=== PATIENT | male | born 2000 | race Hispanic/Latino ===

== ENCOUNTER 2020-07-25 05:11 | Emergency (ER) | payer OTHER, SELFPAY ==
--- OUTSIDE RECORDS SUMMARY | 2020-07-25 05:14 | XMS REPORT | Continuity of Care Document ---
:[address] [facility] t Address [address] [place] [address] Care Team Providers Name Role Phone Unavailable Unavailable Unavailable Payers Payer Name Policy Type Policy Number Effective Date Expiration Date S ource Problems This patient has no known problems. Allergies, Adverse Reactions, Alerts Allergy Allergy Status Severity Reaction(s) Onset Inactive Treating Comm ents Source Name Type Date Date Clinician No Known DA Active [facility] 5[facility]10 [facility] Medications This patient has no known medications. Procedures This patient has no known procedures. Results Test Description Test Time Test Comments Results Result [facility] e Comments - XR SHOULDER 1 V 2019-07-06 FAX: Y RT 15:58:00 Vincenzo Lan MD [place]: [facility] St: REG Name: [facility] : 2000 Age/S: 19/M [address] Unit #: [id number] Loc: [place] [address] Phys: Vincenzo Lan MD Acct: [id number] Dis Date: Status: REG ER PHONE #: [phone] Exam Date: 07/06/2019 1544 FAX #: [phone] Reason: post reduction EXAMS: CPT CODE: [id number] XR SHOULDER 1 V RT [id number] Location code: H5 Right Shoulder 2 Views Indication: post reduction. Comparison: 07/06/2019. Findings: The acromioclavicular joint demonstrates mild hypertrophic spurring. Anteroinferior dislocation of the humerus The glenoid is intact. No evidence of fracture. Soft tissues are unremarkable. Impression: 1. Anteroinferior shoulder dislocation.. at 7881 Reported and signed by: MACIE PINA M.D. CC: Vincenzo Lan MD Technologist: Karin Scales RT (R) CT (R) Trnscrd Date/Time/By: 07/06/2019 (5614) : By: [email or web address] Orig Print D/T: S: 07/06/2019 (7181) PAGE 1 Signed Report - XR KNEE 3 V RT 2019-07-06 FAX: Y 14:23:00 Vincenzo Lan MD [place]: [facility] St: REG Name: [facility] : 2000 Age/S: 19/M [address] Unit #: [id number] Loc: [place] [address] Phys: Vincenzo Lan MD Acct: [id number] Dis Date: Status: REG ER PHONE #: [phone] Exam Date: 07/06/2019 1414 FAX #: [phone] Reason: fall EXAMS: CPT CODE: [id number] XR KNEE 3 V RT [id number] - XR KNEE 3 V RT PROVIDED REASON FOR EXAM: fall Comparison: None available. FINDINGS: Joint is anatomic alignment. Joint spaces are well-maintained. Prepatellar soft tissue swelling. Small joint effusion. IMPRESSION: Prepatellar soft tissue swelling and small joint effusion without acute osseous process Location: H13 at 1423 Reported and signed by: MURPHY GRIMES M.D. CC: Vincenzo Lan MD Technologist: Karin Scales RT (R) CT (R) Trnlard Date/Time/By: 07/06/2019 (142) : By: [email or web address] Orig Print D/T: S: 07/06/2019 (142) PAGE 1 Signed Report - XR SHOULDER 1 V 2019-07-06 FAX: Y RT 14:22:00 Vincenzo Lan MD [place]: [facility] St: REG Name: [facility] : 2000 Age/S: 19/M [address] Unit #: [id number] Loc: [place] [address] Phys: Vincenzo Lan MD Acct: [id number] Dis Date: Status: REG ER PHONE #: [phone] Exam Date: 07/06/2019 1416 FAX #: [phone] Reason: fall EXAMS: CPT CODE: [id number] XR SHOULDER 1 V RT [id number] - XR SHOULDER 1 V RT PROVIDED REASON FOR EXAM: fall Comparison: None available. FINDINGS: Inferior dislocation of the humeral head. No Hill-Sachs fracture identified. Glenoid appears unremarkable. Visualized right lung is clear process. IMPRESSION: Inferior dislocation of the humeral head Location: H13 at 1422 Reported and signed by: MURPHY GRIMES M.D. CC: Vincenzo Lan MD Technologist: Karin Scales RT (R) CT (R) Trnscrd Date/Time/By: 07/06/2019 (8760) : By: [email or web address] Orig Print D/T: S: 07/06/2019 (3396) PAGE 1 Signed Report
[2020-07-25 05:54] LABS: Absolute Lymphocytes (CBC) 3.6 K/uL (0.7-4.9); Basophils % 0.9 % (0-1.3); Hematocrit 44.8 % (39.6-49.0); Lymphocytes % 32.3 % (15.3-44.8); MPV 8.4 fL (7.6-11.3); RBC Red Blood Cell Count 5.21 M/uL (4.33-5.43)
[2020-07-25 06:10] LABS: Potassium 3.7 mmol/L (3.5-5.1)
[2020-07-25 06:55] LABS: Protime INR 0.99
[2020-07-25 07:09] LABS: ALT/SGPT 61 U/L (12-78); AST/SGOT 30 U/L (15-37); Alkaline Phosphatase 125 U/L (45-117); Bilirubin Direct < 0.1 mg/dL (0-0.2); Bilirubin Total 0.2 mg/dL (0.2-1.0); Protein, Total 7.3 g/dL (6.4-8.2)
--- NOTE | 2020-07-25 07:39 | EDPHYS ---
Physician Documentation [facility] Name: Mitch Ho Age: 20 yrs Sex: Male : 2000 Arrival Date: 07/25/2020 Time: 05:12 Bed 4 Private MD: ED Physician Jovani Prince HPI: 07/25 06:07 This 20 yrs old Male presents to ER via EMS with complaints of Fall Injury. [facility] 06:07 Details of fall: The patient fell from an upright position, while standing, and struck [facility] Bathtub. Onset: The symptoms/episode began/occurred today, at an unknown time. Associated injuries: The patient sustained left lower leg, painful injury. Severity of symptoms: At their worst the symptoms were moderate, earlier today, in the emergency department the symptoms are unchanged. 06:07 Admits to drinking ETOH and does know if he hit his head or had LOC.. [facility] Historical: - Allergies: 05:23 No Known Allergies; ea - Home Meds: 05:23 None [Active]; ea - PMHx: 05:23 None; ea - PSHx: 05:23 None; ea - Immunization history:: Adult Immunizations up to date. - Immunization history: Last tetanus immunization: unknown. - Social history:: Smoking status: unknown. ROS: 06:07 Constitutional: Negative for fever, chills, and weight loss, Eyes: Negative for injury, mh7 pain, redness, and discharge, ENT: Negative for injury, pain, and discharge, Neck: Negative for injury, pain, and swelling, Cardiovascular: Negative for chest pain, palpitations, and edema, Respiratory: Negative for shortness of breath, cough, wheezing, and pleuritic chest pain, Abdomen/GI: Negative for abdominal pain, nausea, vomiting, diarrhea, and constipation, Back: Negative for injury and pain, : Negative for injury, bleeding, discharge, and swelling, Skin: Negative for injury, rash, and discoloration, Neuro: Negative for headache, weakness, numbness, tingling, and seizure, Psych: Negative for depression, anxiety, suicide ideation, homicidal ideation, and hallucinations, Allergy/Immunology: Negative for hives, rash, and allergies, Endocrine: Negative for neck swelling, polydipsia, polyuria, polyphagia, and marked weight changes, Hematologic/Lymphatic: Negative for swollen nodes, abnormal bleeding, and unusual bruising. Exam: 06:07 Head/Face: Normocephalic, atraumatic. Eyes: Pupils equal round and reactive to light, mh7 extra-ocular motions intact. Lids and lashes normal. Conjunctiva and sclera are non-icteric and not injected. Cornea within normal limits. Periorbital areas with no swelling, redness, or edema. ENT: Nares patent. No nasal discharge, no septal abnormalities noted. Tympanic membranes are normal and external auditory canals are clear. Oropharynx with no redness, swelling, or masses, exudates, or evidence of obstruction, uvula midline. Mucous membranes moist. Neck: Trachea midline, no thyromegaly or masses palpated, and no cervical lymphadenopathy. Supple, full range of motion without nuchal rigidity, or vertebral point tenderness. No Meningismus. Chest/axilla: Normal chest wall appearance and motion. Nontender with no deformity. No lesions are appreciated. Cardiovascular: Regular rate and rhythm with a normal S1 and S2. No gallops, murmurs, or rubs. Normal PMI, no JVD. No pulse deficits. Respiratory: Lungs have equal breath sounds bilaterally, clear to auscultation and percussion. No rales, rhonchi or wheezes noted. No increased work of breathing, no retractions or nasal flaring. Abdomen/GI: Soft, non-tender, with normal bowel sounds. No distension or tympany. No guarding or rebound. No evidence of tenderness throughout. Back: No spinal tenderness. No costovertebral tenderness. Full range of motion. Skin: Warm, dry with normal turgor. Normal color with no rashes, no lesions, and no evidence of cellulitis. 06:07 Neuro: Awake and alert, GCS 15, oriented to person, place, time, and situation. Cranial nerves II-XII grossly intact. Motor strength 5/5 in all extremities. Sensory grossly intact. Cerebellar exam normal. Normal gait. Psych: Awake, alert, with orientation to person, place and time. Behavior, mood, and affect are within normal limits. 06:07 Constitutional: The patient appears in no acute distress, alert, awake, Appears intoxicated 06:07 Musculoskeletal/extremity: Extremities: noted in the left lower leg: decreased ROM, pain, swelling, tenderness, ROM: limited active range of motion due to pain, in the left leg, limited passive range of motion due to pain, in the left leg, Circulation is intact in all extremities. Sensation intact. Compartment Syndrome exam of affected extremity: is normal. no numbness, no tingling, no sensation deficit, no palor, no weak pulses, Joints: All joints appear normal with full range of motion. Tendon exam: specific tendon testing normal through active and passive range of motion 08:43 ECG was reviewed by the Attending Physician. [facility] Vital Signs: 05:14 BP 126 / 77; Pulse 106; Resp 20; Temp 98.2(O); Pulse Ox 99% on R/A; Weight 96.62 kg lp1 (R); Height 5 ft. 9 in. (175.26 cm); Pain 10/10; 06:46 BP 115 / 89; Pulse 107; Resp 18; Pulse Ox 98% ; ea 07:19 BP 126 / 77; Pulse 103; Resp 17 S; Pulse Ox 97% on R/A; jd3 08:45 BP 107 / 81; Pulse 61; Resp 16 S; Pulse Ox 98% on R/A; jd3 05:14 Body Mass Index 31.45 (96.62 kg, 175.26 cm) lp1 Mady Coma Score: 05:14 Eye Response: spontaneous(4). Verbal Response: oriented(5). Motor Response: obeys ea commands(6). Total: 15. 09:30 Eye Response: spontaneous(4). Verbal Response: oriented(5). Motor Response: obeys jd3 commands(6). Total: 15. Trauma Score (Adult): 05:14 Eye Response: spontaneous(1); Verbal Response: oriented(1); Motor Response: obeys ea commands(2); Systolic BP: > 89 mm Hg(4); Respiratory Rate: 10 to 29 per min(4); Whitman Score: 15; Trauma Score: 12 09:30 Eye Response: spontaneous(1); Verbal Response: oriented(1); Motor Response: obeys jd3 commands(2); Systolic BP: > 89 mm Hg(4); Respiratory Rate: 10 to 29 per min(4); Mady Score: 15; Trauma Score: 12 MDM: 06:26 Patient medically screened. [facility] 07:41 Differential diagnosis: fracture, sprain, strain. Data reviewed: vital signs, nurses [facility] notes, lab test result(s), EKG, radiologic studies, CT scan, plain films. Data interpreted: personnel monitor: rate is 103 beats/min, rhythm is regular, Pulse oximetry: on room air is 97 %. Test interpretation: by ED physician or midlevel provider: ECG, plain radiologic studies. Counseling: I had a detailed discussion with the patient and/or guardian regarding: the historical points, exam findings, and any diagnostic results supporting the discharge/admit diagnosis, lab results, radiology results, the need to transfer to another facility, for higher level of care, [facility] does not immediately have the required specialist. 07/25 05:32 Order name: Basic Metabolic Panel; Complete Time: 07:30 07/25 05:32 Order name: CBC with Diff; Complete Time: 07:30 07/25 05:32 Order name: Type And Screen; Complete Time: 08:42 07/25 06:13 Order name: LFT's; Complete Time: 07:30 [facility] 07/25 06:13 Order name: Protime (+inr); Complete Time: 07:30 [facility] 07/25 06:13 Order name: Ptt, Activated; Complete Time: 07:30 [facility] 07/25 07:33 Order name: Acetaminophen [facility] 07/25 07:33 Order name: ETOH Level; Complete Time: 08:42 [facility] 07/25 07:33 Order name: Salicylate [facility] 07/25 07:33 Order name: Urine Drug Screen [facility] 07/25 07:35 Order name: COVID-19 : Document "Date of Symptom Onset" if Symptomatic. [facility] 07/25 07:43 Order name: ABO/RH no charge; Complete Time: 08:42 [facility] 07/25 09:17 Order name: Urine Dipstick-Ancillary [facility] 07/25 05:15 Order name: XRAY Tib Fib LEFT 07/25 05:32 Order name: CT Traumagram (Head C Spine CAP wo con) 07/25 05:32 Order name: Labs collected and sent; Complete Time: 05:53 07/25 06:48 Order name: Labs - recollect needed: recollect T\\T\\S/ tube short please do not use eb sharpie or gel pen; Complete Time: 07:18 07/25 07:33 Order name: EKG; Complete Time: 07:34 [facility] 07/25 07:33 Order name: EKG - Nurse/Tech; Complete Time: 08:42 [facility] 07/25 07:33 Order name: IV Saline Lock; Complete Time: 07:46 [facility] 07/25 07:33 Order name: Suicide Screening ([place]); Complete Time: 07:46 [facility] 07/25 07:33 Order name: Urine Dipstick-Ancillary (obtain specimen); Complete Time: 09:19 [facility] 07/25 07:33 Order name: Splint - Long Leg: Posterior w/ Stirrup; Complete Time: 08:08 [facility] EC:43 Rate is 112 beats/min. Rhythm is regular. QRS [place] is Normal. CA interval is normal. [facility] QRS interval is normal. QT interval is normal. No Q waves. T waves are Normal. No ST changes noted. Clinical impression: Sinus tachycardia and No evidence of ischemia. Interpreted by me. Reviewed by me. Administered Medications: 08:22 Drug: NS 0.9% 1000 ml Route: IV; Rate: 1 bolus; Site: left antecubital; jd3 09:26 Follow up: IV Status: Completed infusion; IV Intake: 1000ml bp Disposition: 07/25/20 07:39 Transfer ordered to [facility]. Diagnosis are Alcohol abuse with intoxication, Alcohol abuse, Displaced spiral fracture of shaft of left tibia, Displaced spiral fracture of shaft of left fibula, Fall due to bumping against object, Pain in right shoulder - old hill-sacks, Other fracture of first lumbar vertebra - L1 transverse process. - Reason for transfer: Higher level of care. - Accepting physician is to [facility], Dr Pepito Casey. - Condition is Stable. - Problem is new. - Symptoms have improved. Signatures: Dispatcher [employer] EDJovani Silver MD MD cha Antunez, Elena RN Jefferson Johns ea, RN RN jLeah Bro Maurice, MD MD Oziel Issa RN bp Corrections: (The following items were deleted from the chart) 09:14 07:39 07/25/2020 07:39 Transfer ordered to [facility]. Diagnosis is [facility] Alcohol abuse with intoxication; Alcohol abuse; Displaced spiral fracture of shaft of left tibia; Displaced spiral fracture of shaft of left fibula; Fall due to bumping against object. Reason for transfer: Higher level of care. Accepting physician is to [facility]. Condition is Stable. Problem is new. Symptoms have improved. [facility] 09:15 09:14 07/25/2020 07:39 Transfer ordered to [facility]. Diagnosis is [place] Alcohol abuse with intoxication; Alcohol abuse; Displaced spiral fracture of shaft of left tibia; Displaced spiral fracture of shaft of left fibula; Fall due to bumping against object; Pain in right shoulder - old hill-sacks; Other fracture of first lumbar vertebra - L1 transverse process. Reason for transfer: Higher level of care. Accepting physician is to [facility]. Condition is Stable. Problem is new. Symptoms have improved. [facility] 09:47 09:15 07/25/2020 07:39 Transfer ordered to [facility]. Diagnosis is jd3 Alcohol abuse with intoxication; Alcohol abuse; Displaced spiral fracture of shaft of left tibia; Displaced spiral fracture of shaft of left fibula; Fall due to bumping against object; Pain in right shoulder - old hill-sacks; Other fracture of first lumbar vertebra - L1 transverse process. Reason for transfer: Higher level of care. Accepting physician is to [facility], Dr Pepito Casey. Condition is Stable. Problem is new. Symptoms have improved. [facility]
--- NOTE | 2020-07-25 07:39 | ER ---
Nurse's Notes [facility] Name: Mitch Ho Age: 20 yrs Sex: Male : 2000 Arrival Date: 07/25/2020 Time: 05:12 Bed 4 Private MD: Diagnosis: Alcohol abuse with intoxication;Alcohol abuse;Displaced spiral fracture of shaft of left tibia;Displaced spiral fracture of shaft of left fibula;Fall due to bumping against object;Pain in right shoulder-old hill-sacks;Other fracture of first lumbar vertebra-L1 transverse process Presentation: 07/25 05:14 Coronavirus screen: Client denies travel out of the [place] in the last 14 days. At this lp1 time, the client does not indicate any symptoms associated with coronavirus-19. Ebola Screen: No symptoms or risks identified at this time. Initial Sepsis Screen: Does the patient meet any 2 criteria? No. Patient's initial sepsis screen is negative. Does the patient have a suspected source of infection? No. Patient's initial sepsis screen is negative. Risk Assessment: Do you want to hurt yourself or someone else? Patient reports no desire to harm self or others. 05:14 Acuity: SALAS 2 lp1 05:14 Method Of Arrival: EMS: [facility] lp1 05:14 Chief complaint: EMS states: Reported pt fell in the shower, EMS noted bony deformity ea on the left leg. Care prior to arrival: left lower leg splint. Mechanism of Injury: Fall from standing position. Trauma event details: Injury occurred in the [facility], Injury occurred: at home. Injury occurred: July 25, 2020. 05:14 Onset of symptoms was July 25, 2020. ea Trauma Activation: Alert Physician: ED Physician; Name: ; Notified At: ; Arrived At: Physician: General Surgeon; Name: ; Notified At: ; Arrived At: Physician: Radiology; Name: ; Notified At: ; Arrived At: Physician: Respiratory; Name: ; Notified At: ; Arrived At: Physician: Lab; Name: ; Notified At: ; Arrived At: Historical: - Allergies: 05:23 No Known Allergies; ea - Home Meds: 05:23 None [Active]; ea - PMHx: 05:23 None; ea - PSHx: 05:23 None; ea - Immunization history:: Adult Immunizations up to date. - Immunization history: Last tetanus immunization: unknown. - Social history:: Smoking status: unknown. Screenin:14 Abuse screen: Denies threats or abuse. Nutritional screening: No deficits noted. ea Tuberculosis screening: No symptoms or risk factors identified. Fall Risk None identified. Primary Survey: 05:14 NO uncontrolled hemorrhage observed. Breathing/Chest: Respiratory pattern: regular, ea Respiratory effort: spontaneous, unlabored. Circulation: Pulses: palpable left dorsalis pedis artery. Skin color: pink, Skin temperature: warm. Disability Alert. Exposure/Environment: Obvious injury(ies) are noted at this time: swelling and body deformity to left lower extremity. 06:48 Reassessment Breathing/Chest Respiratory pattern Regular Respiratory effort Spontaneous ea Unlabored Disability Alert. Assessment: 05:14 General: Appears uncomfortable, Behavior is appropriate for age, Smells of alcohol. ea Pain: Complains of pain in left leg. Neuro: Level of Consciousness is awake, alert, obeys commands, Oriented to person, place, time. Respiratory: Airway is patent Respiratory effort is even, unlabored, Respiratory pattern is regular, symmetrical. Derm: Skin is pink, warm \T\ dry. Musculoskeletal: Bony deformity noted of left coats. 06:16 Reassessment: Patient and/or family updated on plan of care and expected duration. Pain ea level reassessed. Patient is alert, oriented x 3, equal unlabored respirations, skin warm/dry/pink. 07:20 General: Appears comfortable, Behavior is cooperative, appropriate for age, Smells of jd3 alcohol. Pain: Complains of pain in left leg. Neuro: Level of Consciousness is awake, alert, obeys commands, Oriented to person, place, time. Cardiovascular: Capillary refill < 3 seconds Patient's skin is warm and dry. Respiratory: Airway is patent Respiratory effort is even, unlabored, Respiratory pattern is regular, symmetrical. Derm: Skin is intact, Skin is dry, Skin is normal, Skin temperature is warm. Musculoskeletal: Bony deformity noted of left leg. 08:44 Reassessment: Patient and/or family updated on plan of care and expected duration. Pain jd3 level reassessed. Patient is alert, oriented x 3, equal unlabored respirations, skin warm/dry/pink. report given to [place] at [facility] Patient denies pain at this time. 09:25 Reassessment: [facility] AT B/S FOR TRANSPORT. bp 09:45 Reassessment: Patient appears in no apparent distress at this time. Patient and/or jd3 family updated on plan of care and expected duration. Pain level reassessed. Patient is alert, oriented x 3, equal unlabored respirations, skin warm/dry/pink. Vital Signs: 05:14 BP 126 / 77; Pulse 106; Resp 20; Temp 98.2(O); Pulse Ox 99% on R/A; Weight 96.62 kg lp1 (R); Height 5 ft. 9 in. (175.26 cm); Pain 10/10; 06:46 BP 115 / 89; Pulse 107; Resp 18; Pulse Ox 98% ; ea 07:19 BP 126 / 77; Pulse 103; Resp 17 S; Pulse Ox 97% on R/A; jd3 08:45 BP 107 / 81; Pulse 61; Resp 16 S; Pulse Ox 98% on R/A; jd3 05:14 Body Mass Index 31.45 (96.62 kg, 175.26 cm) lp1 [place] Coma Score: 05:14 Eye Response: spontaneous(4). Verbal Response: oriented(5). Motor Response: obeys ea commands(6). Total: 15. 09:30 Eye Response: spontaneous(4). Verbal Response: oriented(5). Motor Response: obeys jd3 commands(6). Total: 15. Trauma Score (Adult): 05:14 Eye Response: spontaneous(1); Verbal Response: oriented(1); Motor Response: obeys ea commands(2); Systolic BP: > 89 mm Hg(4); Respiratory Rate: 10 to 29 per min(4); Mady Score: 15; Trauma Score: 12 09:30 Eye Response: spontaneous(1); Verbal Response: oriented(1); Motor Response: obeys jd3 commands(2); Systolic BP: > 89 mm Hg(4); Respiratory Rate: 10 to 29 per min(4); [place] Score: 15; Trauma Score: 12 ED Course: 05:12 Patient arrived in ED. iw 05:14 Brianna Mckinney, RN is Primary Nurse. ea 05:14 Patient has correct armband on for positive identification. Bed in low position. Call ea light in reach. Side rails up X2. 05:14 Patient placed in an exam room, on a stretcher, on pulse oximetry. ea 05:14 Patient maintains SpO2 saturation greater than 95% on room air. ea 05:15 Triage completed. lp1 05:18 Colt Sibley MD is Attending Physician. 7 05:27 Thermoregulation: warm blanket given to patient. ea 05:28 Inserted saline lock: 20 gauge in left forearm, using aseptic technique. Blood ea collected. 05:40 XRAY Tib Fib LEFT In Process Unspecified. EDMS 06:17 CT Traumagram (Head C Spine CAP wo con) In Process Unspecified. EDMS 06:26 Attending Physician role handed off by Colt Sibley MD philly 06:26 Jovani Prince MD is Attending Physician. philly 07:[address] Prince with Constanza Fontana Rn from the [facility]. 07:39 administrative approval given by Constanza Fontana Rn to Dr. Prince/ patient has been eb accepted to [facility] ER/ Dr. Casey has accepted the patient in transfer without conference. report to be called to [phone]. 07:59 Orthoglass splint: Posterior long leg splint applied on left leg. stirrup splint dh3 applied on left leg. capillary refill <3 seconds, viewed by Dr. Prince. 08:18 Primary Nurse role handed off by Brianna Mckinney, SARITA 08:42 Jefferson Lopez, SARITA is Primary Nurse. jd3 09:26 No provider procedures requiring assistance completed. Patient transferred, IV remains bp in place. Administered Medications: 08:22 Drug: NS 0.9% 1000 ml Route: IV; Rate: 1 bolus; Site: left antecubital; jd3 09:26 Follow up: IV Status: Completed infusion; IV Intake: 1000ml bp Intake: 09:26 IV: 1000ml; Total: 1000ml. bp 09:30 IV: 1500ml (IV Fluid); Total: 2500ml. jd3 Output: 09:30 Urine: 1500ml (Voided); Total: 1500ml. jd3 Outcome: 07:39 ER care complete, transfer ordered by . philly 09:45 Transferred by ground EMS to [facility], Transfer form completed. X-rays sent jd3 w/ patient. 09:45 Condition: stable 09:45 Instructed on the need for transfer, Demonstrated understanding of instructions. 09:46 Patient's length of stay in the Emergency Department was greater than 2 hours. transfer jd3 processPatient's length of stay extended due to 09:47 Patient left the ED. feliberto Signatures: Dispatcher [employer] EDMS Jovani Prince MD MD cha Williams, Irene, Estella Coughlin RN, RN RN [facility] Mary Dunn [facility] Brianna Mckinney RN RN ea Davies, Jonathon, RN RN jd3 Oziel Liz RN RN bp Botello, Elizabeth eb Holmes, Maurice, MD MD 7
[2020-07-25] MEDS ORDERED: NA CHLORIDE 0.9% 1,000 ML ONE (08:30)
--- NOTE | 2020-07-25 09:13 | RAD REPORT ---
EXAM DESCRIPTION: RAD - Tib Fib Left - 07/25/2020 5:42 am CLINICAL HISTORY: Leg trauma, visible deformity, leg pain COMPARISON: None. FINDINGS: Cross-table views of the left tib-fib obtained the could not be optimally positioned. Spiral type fracture of the distal tibia present near the diaphyseal metaphyseal junction. Approximat agnes 15 degrees medial angulation deformity. There is approximately 10 mm of posterior and 6 mm of med ial displacement of the distal fracture fragment. There are probably small free fracture fragments al logan the main spiral fracture plane. Comminuted fracture of the distal fibula shaft is present with similar angulation and posterior displ acement. No pathologic change. Knee and ankle joints show no suspicious findings. No foreign body or other soft tissue abnormality. IMPRESSION: Distal left tib-fib fracture as detailed.
[2020-07-25 09:19] LABS: Urine Blood Negative (Negative); Urine Glucose Negative (Negative); Urine Protein Negative (Negative)
[2020-07-25 09:50] LABS: Barbiturates NEGATIVE (NEGATIVE); Benzodiazepines NEGATIVE (NEGATIVE); Cocaine NEGATIVE (NEGATIVE); METHAMPHETAM NEGATIVE (NEGATIVE); Methadone NEGATIVE (NEGATIVE); Opiates NEGATIVE (NEGATIVE); Phencyclidine NEGATIVE (NEGATIVE); THC Cannibis NEGATIVE (NEGATIVE)
[2020-07-25 09:54] VITALS: TEMP 98.2
[2020-07-25 09:58] VITALS: BP 107/81; O2SAT 98
--- NOTE | 2020-07-26 09:44 | RAD REPORT ---
EXAM DESCRIPTION: CT - Head C Spine Cap Wo Con - 07/25/2020 6:17 am COMPARISON: None. CLINICAL HISTORY: [facility] MAIN PAIN TECHNIQUE: Axial images were obtained from skull base to vertex without intravenous contrast. Imag es viewed on bone and brain windows. Multiplanar reformats were performed. Automated exposure contr ol was utilized on this examination as a dose lowering technique. FINDINGS: Brain parenchyma, ventricles, dura, meninges, and extra-axial spaces: Ventricles and sulci are normal. No abnormal attenuation of brain parenchyma is present. No acute intracranial hemor rhage or abnormal extra-axial fluid collections are present. Vascular structures: No hyperdense arteries or veins. Calvarium, mastoid air cells, paranasal sinuses and orbits: The calvarium is normal. The mastoid air cells are clear. Visualized paranasal sinuses are unremarkable. Orbital structures are unremarkable. IMPRESSION: No acute intracranial abnormality. EXAM DESCRIPTION: CT Cervical Spine COMPARISON: None. CLINICAL HISTORY: [facility] MAIN PAIN TECHNIQUE: Axial CT images were obtained through the entire cervical spine without contrast. Sagit natali and coronal reconstructions are provided. Automated exposure control was utilized on this examina tion as a dose lowering technique. FINDINGS: Vertebrae: Vertebral statures and alignment are normal. No acute fracture, dislocation o r destructive osseous process is present. Spinal canal, foramina, and facet joints: No significant spinal canal or foraminal stenoses. No significant facet arthropathy. Paraspinous soft-tissues: Normal. Thyroid: Normal. Other Findings: None. IMPRESSION: Normal CT of the cervical spine. EXAM DESCRIPTION: CT Chest, Abdomen, and Pelvis COMPARISON: None. CLINICAL HISTORY: [facility] MAIN PAIN TECHNIQUE: CT images through the chest, abdomen, and pelvis following IV contrast. Multiplanar refor mats. Automated exposure control was utilized on this examination as a dose lowering technique. CT CHEST FINDINGS: Heart and mediastinum: Heart size is normal. No lymphadenopathy. Thyroid gland: Visualized portions are normal. Lungs: Clear. Airways: No filling defects. No bronchiectasis. Pleura: No pneumothorax. No significant pleural effusion. Musculoskeletal and soft tissues: There is a minimally displaced fracture of the anterior right gleno id. There is an impaction fracture of the posterior lateral right humerus. CHEST IMPRESSION: Right Hill-Sachs fracture of the humerus with osseous Bankart fracture of the ante rior right glenoid. No acute chest process otherwise. CT ABDOMEN & PELVIS FINDINGS: Liver: Normal. Gallbladder and biliary: Normal gallbladder. Unremarkable biliary tree. Pancreas: Normal. Spleen: Normal. Kidneys and adrenal glands: Normal adrenal glands. Normal kidneys Stomach and Small Bowel: The stomach and small bowel are normal. Urinary bladder: Normal. Prostate/Male Urogenital: Normal. Colon and Appendix: The colon is unremarkable. No evidence of appendicitis. Peritoneal cavity: No ascites or free air. Retroperitoneum and lymph nodes: Normal. Vascular: Normal. Musculoskeletal and soft tissues: Soft tissues are unremarkable. No aggressive bone lesions. No com pression fracture. Mildly displaced fracture of the left L1 transverse process. ABDOMEN AND PELVIS IMPRESSION: Mildly displaced fracture of the left L1 transverse process. No acute intra-abdominal abnormality. Electronically signed by: Sagar Coronado MD 07/25/2020 6:54 AM CDT Due to temporary technical issues with the PACS/Fluency reporting system, reports are being signed by the in house radiologists without review as a courtesy to insure prompt reporting. The interpreting radiologist is fully responsible for the content of the report.
--- NOTE | 2020-07-28 12:07 | EKG ---
Test Date: 2020-07-25 Test Time: 08:16:38 Plate Grainer Apprentice: HENNA MEASUREMENT RESULTS: Intervals: Rate: 112 AK: 156 QRSD: 88 QT: 326 QTc: 444 Greenleaf: P: 56 AK: 156 QRS: 14 T: 30 INTERPRETIVE STATEMENTS: Sinus tachycardia Otherwise normal ECG No previous ECG available for comparison Electronically Signed On 07-28-20 11:55:20 CDT by Kraig Pizarro
== END 2020-07-25 09:47 | disposition short-term general hospital (02) ==
LOC: ER 05:11
PROC: 2W3MX1Z Immobilization of Left Lower Extremity using Splint (ICD-10-PCS; principal; 2020-07-25)
DX: S82.242A Displaced spiral fracture of shaft of left tibia, initial encounter for closed fracture (principal); S82.442A Displaced spiral fracture of shaft of left fibula, initial encounter for closed fracture; S32.019A Unspecified fracture of first lumbar vertebra, initial encounter for closed fracture; F10.129 Alcohol abuse with intoxication, unspecified; M25.511 Pain in right shoulder; W18.30XA Fall on same level, unspecified, initial encounter; Z20.822 Contact with and (suspected) exposure to COVID-19
CPT/HCPCS: 36415; 70450; 71250; 72125; 80048; 80076; 80307; 80320; 80329; 81003; 85025; 85610; 85730; 86850; 86900; 86901; 93005; 96360; 99285; G0390; J7030; U0003

== ENCOUNTER 2021-06-06 01:26 | Emergency (ER) | payer SELFPAY ==
--- OUTSIDE RECORDS SUMMARY | 2021-06-06 01:29 | XMS REPORT | Continuity of Care Document ---
:2000 Author Organization [facility] t Address [address] [place] [address] Care Team Providers Name Role Phone Unknown, Physician Primary Care Physician Unavailable KAILEY GARCIA Attending Clinician Unavailable KRISS STEPHENS JR Attending Clinician Unavailable MILTON GOMEZ Attending Clinician Unavailable Aubrie Scales MA Attending Clinician Unavailable CARLOS PARRISH Attending Clinician Unavailable KOFI REEDER Admitting Clinician Unavailable Payers Payer Name Policy Type Policy Number Effective Date Expiration Date S ource Problems Condition Condition Condition Status Onset Resolution Last Treating Co mments Source Name Details Category Date Date Treatment Clinician Date No known No known Disease [place] active active Health problems problems Allergies, Adverse Reactions, Alerts Allergy Allergy Status Severity Reaction(s) Onset Inactive Treating Comm ents Source Name Type Date Date Clinician No Known DA Active U 2019-0 [facility] No Known DA Active U 2020-0 [facility] Allergie 5[facility]10 [facility] Social History Social Habit Start Date Stop Date Quantity Comments Source Exposure to SARS-CoV-2 Not sure [facility] (event) Sex Assigned At [birth year] [facility] 00:00:00 00:00:00 Smoking Status Start Date Stop Date Source Tobacco smoking consumption unknown [facility] Medications Ordered Filled Start Stop Current Ordering Indication Dosage Frequency Signature Comments Components Source Medication Medication Date Date Medication? Clinician (SIG) Name Name No known No No known [facility] 8- medication [facility] alth 11:21: s 37 No known No No known [facility] 8-25 medication [facility] 11:21: s 37 No known No [facility] medications Health Procedures This patient has no known procedures. Encounters Start End Encounter Admission Attending Care Care Encounter Source Date/Time Date/Time Type Type Clinicians Facility Department ID 2021-02-11 Outpatient [facility] [id number] [place] 08:10:56 Health 2020-12-15 Outpatient MARY [facility] [id number] [place] 12:32:47 [facility] 2020-12-10 Outpatient [facility] [id number] [place] 12:50:38 Health 2020-10-15 Outpatient [facility] [id number] [place] 09:59:19 [facility] 2020-09-03 Outpatient [facility] [id number] [place] 11:49:31 [facility] 2020-08-28 Outpatient KAT MARSH [facility] [id number] [place] 01:05:12 [facility] 2020-08-06 Outpatient [facility] [id number] [place] 15:33:14 [facility] 2019-07-06 Inpatient [facility] [id number] 13:42:00 [id number] [facility] 2020-12-15 2020-12-15 Office ZULEYMA GOMEZ [id number] [place] 10:23:12 10:38:12 Visit REEJU TRAUMA [id number] [facility] [id number] 2020-12-15 2020-12-15 Orders Aubrie Scales [id number] [place] 00:00:00 00:00:00 Only Aubrie Scales TRAUMA [id number] [facility] CLINIC [id number] 2020-10-20 2020-10-20 Office ZULEYMA Garcia [id number] [place] 11:03:38 11:32:33 Visit Kailey TRAUMA [id number] [facility] CLINIC [id number] 2020-09-08 2020-09-08 Office ZULEYMA Garcia [id number] [place] 10:58:35 13:31:57 Visit Kailey TRAUMA [id number] [facility] [id number] 1 2020-08-11 2020-08-11 Office ZULEYMA Garcia [id number] [place] 11:29:56 13:12:56 Visit Kailey TRAUMA [id number] [facility] [id number] 2020-07-25 2020-07-30 Inpatient E SHIVANI, [facility] MED [address] [facility] 15:25:00 16:00:00 CARLOS Results Test Description Test Time Test Comments Results Result [facility] e Comments - XR SHOULDER 1 V 2019-07-06 FAX: Y RT 15:58:00 Vincenzo Lan MD [place]: [facility]: REG Name: KANNAN [facility] : 2000 Age/S: 19/M [address] Unit #: [id number] Loc: [place] [address] Phys: Vincenzo Lan MD Acct: [id number] Dis Date: Status: REG ER PHONE #: [phone] Exam Date: 07/06/2019 1548 FAX #: [phone] Reason: post reduction EXAMS: CPT CODE: [id number] XR SHOULDER 1 [place] [address] Location code: H5 Right Shoulder 2 Views Indication: post reduction. Comparison: 07/06/2019. Findings: The acromioclavicular joint demonstrates mild hypertrophic spurring. Anteroinferior dislocation of the humerus The glenoid is intact. No evidence of fracture. Soft tissues are unremarkable. Impression: 1. Anteroinferior shoulder dislocation.. at 1555 Reported and signed by: MACIE PINA M.D. CC: Vincenzo Lan MD Technologist: Karin Scales RT (R) CT (R) Trnscrd Date/Time/By: 07/06/2019 (9945) : By: [email or web address] Orig Print D/T: S: 07/06/2019 (3855) PAGE 1 Signed Report - XR KNEE 3 V RT 2019-07-06 FAX: Y 14:23:00 Vincenzo Lan MD [place]: [facility]: REG Name: KANNAN [facility] : 2000 Age/S: 19/M [address] Unit #: [id number] Loc: [place] [address] Phys: Vincenzo Lan MD Acct: [id number] Dis Date: Status: REG ER PHONE #: [phone] Exam Date: 07/06/2019 1414 FAX #: [phone] Reason: fall EXAMS: CPT CODE: [id number] XR KNEE 3 V RT 40805 - XR KNEE 3 V RT PROVIDED REASON FOR EXAM: fall Comparison: None available. FINDINGS: Joint is anatomic alignment. Joint spaces are well-maintained. Prepatellar soft tissue swelling. Small joint effusion. IMPRESSION: Prepatellar soft tissue swelling and small joint effusion without acute osseous process Location: H13 at 9068 Reported and signed by: MURPHY GRIMES M.D. CC: Vincenzo Lan MD Technologist: Karin Scales RT (R) CT (R) Trnscrd Date/Time/By: 07/06/2019 (1423) : By: [email or web address] Orig Print D/T: S: 07/06/2019 (219) PAGE 1 Signed Report - XR SHOULDER 1 V 2019-07-06 FAX: Y RT 14:22:00 Vincenzo Lan MD [place]: [facility]: REG Name: KANNAN [facility] : 2000 Age/S: 19/M [address] Unit #: [id number] Loc: [place] [address] Phys: Vincenzo Lan MD Acct: [id number] Dis Date: Status: REG ER PHONE #: [phone] Exam Date: 07/06/2019 1416 FAX #: [phone] Reason: fall EXAMS: CPT CODE: [id number] XR SHOULDER 1 V RT [id number] - XR SHOULDER 1 V RT PROVIDED [...] RT (R) CT (R) Trnscrd Date/Time/By: 07/06/2019 (142) : By: [email or web address] Orig Print D/T: S: 07/06/2019 (142) PAGE 1 Signed Report
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
[2021-06-06 07:09] VITALS: O2SAT 97
[2021-06-06 07:10] VITALS: BP 113/67; TEMP 98.1
--- NOTE | 2021-06-06 16:05 | RAD REPORT ---
EXAM DESCRIPTION: CT - Head Brain Wo Cont - 06/06/2021 6:40 am CLINICAL HISTORY: Trauma COMPARISON: None Available. TECHNIQUE: Multiple helical axial tomographic images were obtained of the head, facial bones, and ce rvical spine without intravenous contrast. This exam was performed according to our departmental dose -optimization program, which includes automated exposure control, adjustment of the mA and/or kV acco rding to patient size and/or use of iterative reconstruction technique. FINDINGS: There is no acute intracranial hemorrhage. No mass. No midline shift. No ventriculomegaly. Yanes-white matter differentiation is maintained. There is an acute, displaced fracture of the left orbital floor with small amount of orbital fat felisha iating through the defect. There is a rounded appearance of the left inferior rectus muscle which is in close proximity to the fracture. There is scattered air in the left orbit. There is hemorrhage in the left maxillary sinus and left ethmoid sinus. There are acute, mildly comminuted, mildly displaced fractures of the bilateral nasal bones. There is an acute, mildly displaced fracture of the anterior nasal septum. There is soft tissue swelling and soft tissue air overlying the nasal bones. Mastoid air cells and middle ear spaces are clear. No acute calvarial fracture. No evidence of an acute fracture of the cervical spine. Vertebral body heights and disc spaces appear maintained. No subluxation. Central canal is grossly patent. Left frontal scalp hematoma is present. IMPRESSION: 1. Acute, displaced fracture of the left orbital floor with small amount of orbital fat herniating through the defect. Altered contour of the left inferior rectus muscle which is in close p roximity to the fracture, correlate clinically for entrapment. 2. Acute, mildly comminuted, mildly displaced fractures of the bilateral nasal bones and anterior lizbeth al septum. 3. No acute intracranial process. 4. No evidence of an acute fracture of the cervical spine. Electronically signed by: Nuno Aquino MD 06/06/2021 3:31 AM CDT Due to temporary technical issues with the PACS/Fluency reporting system, reports are being signed by the in house radiologist without review as a courtesy to ensure prompt reporting. The interpreting r adiologist is fully responsible for the content of the report.
--- NOTE | 2021-06-06 16:06 | RAD REPORT ---
EXAM DESCRIPTION: CT - Facial Bones W/ Mpr - 06/06/2021 6:41 am CLINICAL HISTORY: Trauma COMPARISON: None Available. TECHNIQUE: Multiple helical axial tomographic images were obtained of the head, facial bones, and ce rvical spine without intravenous contrast. This exam was performed according to our departmental dose -optimization program, which includes automated exposure control, adjustment of the mA and/or kV acco rding to patient size and/or use of iterative reconstruction technique. FINDINGS: There is no acute intracranial hemorrhage. No mass. No midline shift. No ventriculomegaly. Yanes-white matter differentiation is maintained. There is an acute, displaced fracture of the left orbital floor with small amount of orbital fat felisha iating through the defect. There is a rounded appearance of the left inferior rectus muscle which is in close proximity to the fracture. There is scattered air in the left orbit. There is hemorrhage in the left maxillary sinus and left ethmoid sinus. There are acute, mildly comminuted, mildly displaced fractures of the bilateral nasal bones. There is an acute, mildly displaced fracture of the anterior nasal septum. There is soft tissue swelling and soft tissue air overlying the nasal bones. Mastoid air cells and middle ear spaces are clear. No acute calvarial fracture. No evidence of an acute fracture of the cervical spine. Vertebral body heights and disc spaces appear maintained. No subluxation. Central canal is grossly patent. Left frontal scalp hematoma is present. IMPRESSION: 1. Acute, displaced fracture of the left orbital floor with small amount of orbital fat herniating through the defect. Altered contour of the left inferior rectus muscle which is in close p roximity to the fracture, correlate clinically for entrapment. 2. Acute, mildly comminuted, mildly displaced fractures of the bilateral nasal bones and anterior lizbeth al septum. 3. No acute intracranial process. 4. No evidence of an acute fracture of the cervical spine. Electronically signed by: Nuno Aquino MD 06/06/2021 3:31 AM CDT Due to temporary technical issues with the PACS/Fluency reporting system, reports are being signed by the in house radiologist without review as a courtesy to ensure prompt reporting. The interpreting r adiologist is fully responsible for the content of the report.
--- NOTE | 2021-06-06 16:17 | RAD REPORT ---
EXAM DESCRIPTION: CT - C Spine Wo Con - 06/06/2021 6:40 am CLINICAL HISTORY: Trauma COMPARISON: None Available. TECHNIQUE: Multiple helical axial tomographic images were obtained of the head, facial bones, and ce rvical spine without intravenous contrast. This exam was performed according to our departmental dose -optimization program, which includes automated exposure control, adjustment of the mA and/or kV acco rding to patient size and/or use of iterative reconstruction technique. FINDINGS: There is no acute intracranial hemorrhage. No mass. No midline shift. No ventriculomegal y. Yanes-white matter differentiation is maintained. There is an acute, displaced fracture of the left orbital floor with small amount of orbital fat felisha iating through the defect. There is a rounded appearance of the left inferior rectus muscle which is in close proximity to the fracture. There is scattered air in the left orbit. There is hemorrhage in the left maxillary sinus and left ethmoid sinus. There are acute, mildly comminuted, mildly displaced fractures of the bilateral nasal bones. There is an acute, mildly displaced fracture of the anterior nasal septum. There is soft tissue swelling and soft tissue air overlying the nasal bones. Mastoid air cells and middle ear spaces are clear. No acute calvarial fracture. No evidence of an acute fracture of the cervical spine. Vertebral body heights and disc spaces appear maintained. No subluxation. Central canal is grossly patent. Left frontal scalp hematoma is present. IMPRESSION: 1. Acute, displaced fracture of the left orbital floor with small amount of orbital fat herniating through the defect. Altered contour of the left inferior rectus muscle which is in close p roximity to the fracture, correlate clinically for entrapment. 2. Acute, mildly comminuted, mildly displaced fractures of the bilateral nasal bones and anterior lizbeth al septum. 3. No acute intracranial process. 4. No evidence of an acute fracture of the cervical spine. Electronically signed by: Nuno Aquino MD 06/06/2021 3:31 AM CDT Due to temporary technical issues with the PACS/Fluency reporting system, reports are being signed by the in house radiologist without review as a courtesy to ensure prompt reporting. The interpreting r adiologist is fully responsible for the content of the report.
== END 2021-06-06 03:15 | disposition left against medical advice (07) ==
LOC: ER 01:26
DX: S00.31XA Abrasion of nose, initial encounter (principal); Y04.2XXA Assault by strike against or bumped into by another person, initial encounter; Y92.039 Unspecified place in apartment as the place of occurrence of the external cause
CPT/HCPCS: 70450; 70486; 72125; 76377; 99284

== ENCOUNTER 2022-02-12 19:01 | Emergency (ER) | payer SELFPAY ==
--- OUTSIDE RECORDS SUMMARY | 2022-02-12 19:07 | XMS REPORT | Continuity of Care Document ---
:2000 Author Organization [facility] t Address [address] [place] [address] Care Team Providers Name Role Phone Unknown, Physician Primary Care Physician Unavailable KAILEY GARCIA Attending Clinician Unavailable KRISS STEPHENS JR Attending Clinician Unavailable Rola Quiñonez RN Attending Clinician Amrita Cristobal DDS Attending Clinician AMRITA CRISTOBAL Attending Clinician Unavailable Doctor Unassigned, [place] Attending Clinician Unavailable Bibiana Waller LVN Attending Clinician MALACHI CARDONA Attending Clinician Unavailable Malachi Cardona DO Attending Clinician MILTON GOMEZ Attending Clinician Unavailable Aubrie Scales MA Attending Clinician Unavailable CARLOS HARRELL Attending Clinician Unavailable Carlos Harrell Attending Clinician Yves Montes Attending Clinician AMRITA CRISTOBAL Admitting Clinician Unavailable Amrita Cristobal DDS Admitting Clinician YVES MONTES Admitting Clinician Unavailable Yves Montes Admitting Clinician Leopoldo Casey Admitting Clinician Payers Payer Name Policy Type Policy Number Effective Date Expiration Date S ource Problems Condition Condition Condition Status Onset Resolution Last Treating Co mments Source Name Details Category Date Date Treatment Clinician Date Orbital Orbital Disease Active Univers fracture, fracture, 4-11 ity of closed, closed, 00:00: [facility] 00 Medical encounter encounter Bran ch BROKEN LEG BROKEN Diagnosis Active 2020-07-25 Memoria LEG Active 07-25 12:25:00 l 07/25/2020 00:00: Zbigniew leyva [address] DISPLACED DISPLACED Diagnosis Active 2020-08-05 Memoria COMMINUTED COMMINUTED 07-25 21:53:00 l FX SHAFT FX SHAFT 00:00: Zbigniew leyva LT TIBIA LT TIBIA 00 Active 07/25/2020 [facility] DISPLACED DISPLACED Diagnosis Active 2020-08-05 Memoria COMMINUTED COMMINUTED 21:53:00 l FRACTURE FRACTURE Zbigniew leyva OF SHAFT O OF SHAFT O Active [facility] No known No known Disease [place] active active Health problems problems History of Past Illness Condition Condition Condition Status Onset Resolution Last Treating Co mments Source Name Details Category Date Date Treatment Clinician Date Acute Acute Problem 2020-08-01 2020-08-01 M emoria kidney kidney 07-30 22:13:45 22:13:45 l failure, failure, 14:08: Zbigniew leyva unspecifie unspecifie 06 d d 07/30/2020 08/01/2020 [facility] Allergies, Adverse Reactions, Alerts Allergy Allergy Status Severity Reaction(s) Onset Inactive Treating Comm ents Source Name Type Date Date Clinician No Known DA Active U 2019-0 [facility] Allergie 5-10 [facility] No Known DA Active U 2020-0 [facility] Allergie 5-10 [facility] 00:[facility] NO KNOWN Drug Active Univers ALLERGIE Class ity of S [facility] Social History Social Habit Start Date Stop Date Quantity Comments Source Exposure to 2021-06-07 2021-06-17 Unable to assess Univers ity of SARS-CoV-2 00:00:00 13:28:00 [facility] [place] Tobacco use and 2021-06-06 2021-06-06 Smokeless tobacco Un iversity of exposure 00:00:00 00:00:00 non-user [facility] Education 2021-06-06 2021-06-06 13 University 00:00:00 00:00:00 [facility] Social History 2020-07-25 2020-07-25 [facility] 16:11:24 16:11:24 Sex Assigned At [birth year] Universit y of 00:00:00 00:00:00 [facility] Smoking Status Start Date Stop Date Source Never smoked tobacco [facility] Tobacco smoking consumption [place] [facility] [place] unknown Medications Ordered Filled Start Stop Current Ordering Indication Dosage Frequency Signature Comments Components Source Medication Medication Date Date Medication? Clinician (SIG) Name Name No known No No known Unive rs medications 4-22 medication it y of 14:03: s [address] No known No No known Unive rs medications 4-22 medication it y of 14:03: s [address] sodium 2021- No [id number] 1{spray Use 1 Un luke chloride 4-06-18 } [place] in ity of 0.65 % 00:00: 04:59 each [place] nasal spray 00 :00 nostril as Me dical needed Branch (congestio n) for up to 7 days. amoxicillin 2021- No [id number] 1{tbl} Take 1 Univers -clavulanat 4-15 06-18 tablet by it y of e 00:00: 04:59 mouth 2 [place] (AUGMENTIN) 00 :00 (two) Medical 875-125 mg times Branch per tablet daily for 7 days. sodium 2021- No [id number] 1{spray Use 1 Un luke chloride 4-15 06-18 } [place] in ity of 0.65 % 00:00: 04:59 each [place] nasal spray 00 :00 nostril as Me dical needed Branch (congestio n) for up to 7 days. amoxicillin 2021- No [id number] 1{tbl} Take 1 Univers -clavulanat 4-15 06-18 tablet by it y of e 00:00: 04:59 mouth 2 [place] (AUGMENTIN) 00 :00 (two) Medical 875-125 mg times Branch per tablet daily for 7 days. No known No No known [place] medications 8- medication He alth 11:21: s 37 No known No No known [place] medications 8- medication He alth 11:21: s 37 methocarbam Yes 500 mg = 1 Memoria ol 500 mg 6-04 tab, PO, l oral tablet 14:09: QID, PRN He rm 00 Muscle Spasms, 0 Refill(s) tramadol Yes 50 mg = 1 Dipesh simon hydrochlori 6-04 tab, PO, l de 50 MG 14:09: Q6H, PRN Twyla nn Oral Tablet 00 Pain, X 7 day, # 30 tab, 0 Refill(s) Acetaminoph Yes 1 - 2 tab, Memoria en 300 MG / 6-04 PO, Q4H, l Codeine 14:09: PRN Pain, Twyla nn Phosphate 00 X 4 day, # 30 MG Oral 36 tab, 0 Tablet Refill(s) [Tylenol with Codeine #3] Enoxaparin Yes 30 mg = Dipesh simon 6-04 0.3 mL, l 14:09: SUB-Q, Jaren 00 [id number], 0 Refill(s) naproxen Yes 500 mg = 1 Mem oria 500 mg oral 6-04 tab, PO, l tablet 14:09: BID, 0 Jaren 00 Refill(s) acetaminoph Yes 500 mg = 1 Memoria en 500 mg 6-04 tab, PO, l oral 14:08: TID, 0 Jaren tablet. 00 Refill(s) Hydralazine No Notes: Dipesh simon 6-02 (Same as: l 15:01: Apresoline ) Push over 5 minutes Labetalol No 10 mg, 2 Dipesh simon 6-02 mL, Route: l 15:01: IVP, Drug form: INJ, Q5Min, Dosing Weight 97.727, kg, PRN Elevated BP, Start date: 07/28/20 10:01:00 CDT, Duration: 5 doses or times, Stop date: Limited # of times, 0 Acetaminoph No Notes: Max Memoria en 07-28 acetaminop l 15:01: hen 4000 [place] 00 mg/day (4 gm/day). (Same as: Tylenol Extra Strength) Oxycodone No Notes: Memori a Hydrochlori 07-28 (Same as: l de 5 MG 15:01: Roxicodone Herm olga Oral Tablet ) Hydromorpho No Notes: Dipesh simon ne 07-28 Same as l 15:01: Dilaudid Flumazenil No Notes: Memor ia 07-28 (Same as: l 15:01: Romazicon) Naloxone No Notes: Memoria 07-28 (Same as: l 15:01: Narcan) Ondansetron No Notes: Dipesh simon 07-28 (Same as: l 15:01: Zofran) MEDICATION WASTE Product Size: 4 mg Product Wasted: ___ mg Robaxin No Notes: Memoria 07-28 (Same l 15:01: as:Robaxin ) glycopyrrol No Route: IV, Memoria ate (ANES) 07-28 Drug form: l 14:46: INJ, ONCE, Stop date: 07/28/20 9:46:00 CDT neostigmine No Route: IV, Memoria (ANES) 07-28 Drug form: l 14:46: INJ, ONCE, Stop date: 07/28/20 9:46:00 CDT hydromorpho No Route: IV, Memoria ne (ANES) 07-28 Drug form: l 14:46: INJ, ONCE, Stop date: 07/28/20 9:46:00 CDT ondansetron No Route: IV, Memoria (ANES) 07-28 Drug form: l 14:46: INJ, ONCE, Stop date: 07/28/20 9:46:00 CDT ketOROLAC 0 No IV, ONCE Dipesh simon (ANES) 07-28 l 14:46: midazolam No Route: IV, Me moria (ANES) 07-28 Drug form: l 13:39: SOLN, Jaren 00 ONCE, Stop date: 07/28/20 8:39:00 CDT lidocaine No Route: IV, Me moria (ANES) 07-28 Drug form: l 13:39: INJ, ONCE, Stop date: 07/28/20 8:39:00 CDT propofol No Route: IV, Mem oria (ANES) 07-28 Drug form: l 13:39: INJ, ONCE, Stop date: 07/28/20 8:39:00 CDT rocuronium No Route: IV, M emoria (ANES) 07-28 Drug form: l 13:39: INJ, ONCE, Stop date: 07/28/20 8:39:00 CDT fentaNYL No Route: IV, Mem oria (ANES) 07-28 Drug form: l 13:39: INJ, ONCE, Stop date: 07/28/20 8:39:00 CDT dexamethaso No Route: IV, Memoria ne (ANES) 07-28 Drug form: l 13:39: INJ, ONCE, Stop date: 07/28/20 8:39:00 CDT ketAMINE No Route: IV, Mem oria (ANES) 07-28 Drug form: l 13:39: INJ, ONCE, Stop date: 07/28/20 8:39:00 CDT ceFAZolin No Route: IV, Me moria (ANES) 07-28 Drug form: l 13:21: INJ, ONCE, Stop date: 07/28/20 8:21:00 CDT Lactated No Route: IV, Mem oria Ringers 07-28 Total l Injection 12:41: Volume: Twyla nn IV (ANES) 00 1,000, 1000 mL Start date: 07/28/20 7:41:00 CDT, Stop date: 07/28/20 8:41:00 CDT Acetaminoph No Notes: Max Memoria en 5-31 acetaminop l 14:00: hen 4000 Jaren 00 mg/day (4 gm/day). (Same as: Tylenol Extra Strength) sennosides, No Notes: Dipesh simon SNF 5-31 (Same as: l 14:00: Senokot) Jaren POLYETHYLEN No Notes: Dipesh simon E GLYCOL 5-31 Dissolve l 3350 14:00: in 8 oz of Jaren water or juice. (Same as: Miralax) Naproxen No Notes: Memoria 5-31 (Same as: l 14:00: Naprosyn) [place] Take with food. Enoxaparin No Notes: Memor ia 5-31 (Same as: l 13:00: Lovenox) [place] Lidocaine No Notes: Memori a 0.04 MG/MG 5-31 Apply only l Medicated 13:00: once for Herm olga Patch 00 up to 12 hours in a 24-hour period (12 hours on and 12 hours off). (Same as: Aspercreme Lidocaine Patch) "Remove old patch before applicatio n of new patch" Oxycodone No Notes: Memori a Hydrochlori 5-31 (Same as: l de 5 MG 12:54: Roxicodone Herm olga Oral Tablet 00 ) Hydromorpho No Notes: Dipesh simon ne 5-31 Same as l 12:54: Dilaudid [place] Naloxone No Notes: Memoria 5-31 Same as l 12:54: Narcan [place] 00 Bisacodyl No Notes: Memori a 5-31 (Same As: l 12:54: Dulcolax, [place] Bisco-Lax) Ondansetron No Notes: Dipesh simon 5-31 (Same as: l 12:54: Zofran) [place] MEDICATION WASTE Product Size: 4 mg Product Wasted: ___ mg Melatonin No Notes: Memori a 5-31 (Same as: l 12:54: Melatonin) Jaren 00 Fluticasone No Notes: Dipesh simon propionate 5-31 (Same as: l 0.05 12:54: Flonase) [place] MG/ACTUAT 00 Metered Dose Nasal [place] [Flonase] Eucerin No Notes: Memoria topical 5-31 (Same as: l lotion 12:54: Aquaphor) Zbigniew n 00 Diphenhydra No 1 appl, Mem oria mine 5-31 Route: l Hydrochlori 12:54: TOP, QID, H ermann de 20 MG/ML 00 Drug form: Topical CRM, PRN Cream as needed for itching, Start date: 07/26/20 7:54:00 CDT, Duration: 30 day, Stop date: 08/25/20 7:53:00 CDT, 0 Benzocaine No Notes: Memor ia 15 MG / 5-31 Cepacol l Menthol 3.6 12:54: lozenges He rmann MG Lozenge 00 Dispense 1 [Cepacol box = 16 Sore Throat lozenges Pain Relief (Same As: 15/3.6] Cepacol Lozenges) Tums No Notes: Memoria 5-31 (Same As: l 12:54: Tums) [place] 00 Calcium Carbonate 500 mg = 200 mg elemental calcium Dose = mg calcium carbonate ( mg elemental calcium) Simethicone No Notes: Dipesh simon 5-31 (Same as: l 12:54: Mylicon, [place] 00 Phazyme, Genasyme) ocular No Notes: Memoria lubricant 5-31 Same as l solution 12:54: Tears Jaren 00 Naturale and GenTeal Tears Sodium No Notes: Memoria Chloride 5-31 (sodium l 12:54: chloride [place] 00 0.65% 15 ml nasal DROP) (Same as: Nasal Moist) Calmoseptin No Notes: Dipesh simon e topical 5-31 (Same as: l ointment 12:54: Calmosepti Her baptiste 00 ne) Cetirizine No Notes: Memor ia 5-31 (Same As: l 12:54: Zyrtec) [place] 00 Tessalon No Notes: Memoria Perles -31 (Same As: l 12:54: Tessalon Perles) "Do Not Crush" Blistex No Notes: Memoria topical 5- Same as: l ointment 12:54: Blistex Zbigniew n 00 Robitussin- No Notes: Dipesh simon DM 07-26 (dextromet l 12:54: horphan-gu aifenesin 10-100mg/5 ml 10 ml oral SOLN ud) (Same as: Robitussin DM) Albuterol No Notes: SEE Me moria 0.83 MG/ML 07-26 RT l Inhalant 12:54: DOCUMENTAT Her baptiste Solution 00 ION (Same as: Proventil) Robaxin No Notes: Memoria - (Same l 12:53: as:Robaxin ) NS 1,000 mL No 1,000 mL, M emoria 07-26 Rate: 100 l 05:01: ml/hr, Infuse over: 10 hr, Route: IV, Dosing Weight 97.727 kg, Total Volume: 1,000, Start date: 07/26/20 0:01:00 CDT, Duration: 1 day, Stop date: 07/27/20 0:00:00 CDT, BSA: 2.2 m2, 0 ketOROLAC No 4 days Memor ia 30 mg/mL 07-26 l injectable 05:00: MEDICATION H ermann solution 00 WASTE Product Size: 30 mg Product Wasted: ___ mg Ancef No Notes: Memoria -31 (Same as l 04:00: Ancef) sennosides, No Notes: Dipesh simon SNF - (Same as: l 02:00: Senokot) Morphine No Notes: Memoria - (Same l 01:57: as:MORPhin e Sulfate) Acetaminoph No Notes: Dipesh simon en 325 MG / 5-31 (Same as: l Hydrocodone 00:40: [place] Twyla nn Bitartrate 00 325/5) Do 5 MG Oral not exceed Tablet 4gm/day of [[place] acetaminop 5/325] hen. Acetaminoph No Notes: Do M emoria en 325 MG / 5-31 not exceed l Hydrocodone 00:40: 4gm/day of [place] Bitartrate 00 acetaminop 10 MG Oral hen. (Same Tablet as: [place] [[place] 325/10) 10/325] Oxycodone No Notes: Memori a Hydrochlori 5-31 (Same as: l de 5 MG 00:40: Roxicodone Herm olga Oral Tablet 00 ) Robaxin No Notes: Memoria 5-31 (Same l 00:40: as:Robaxin [place] ) Morphine No 4 mg, Memoria 5-30 Route: l 23:32: IVP, ONCE, Dosing Weight 97.727, kg, Priority: STAT, Start date: 07/25/20 18:32:00 CDT, Stop date: 07/25/20 18:32:00 CDT Enoxaparin No Notes: Memor ia 5-30 (Same as: l 23:00: Lovenox) Dextrose No 12.5 gm, Memor ia 50% Syringe 5-30 25 mL, l (D50W) 22:05: Route: IVP, Drug Form: INJ, Dosing Weight 97.727, kg, PRN, PRN Blood Glucose Results, Start date: 07/25/20 17:05:00 CDT, Duration: 30 day, Stop date: 08/24/20 17:04:00 CDT, 0 Glucagon No 1 mg, Memoria 5-30 Route: IM, l 22:05: Drug form: PDR/INJ, PRN, Dosing Weight 97.727, kg, PRN Blood Glucose Results, Start date: 07/25/20 17:05:00 CDT, Duration: 30 day, Stop date: 08/24/20 17:04:00 CDT, 0 Bisacodyl No Notes: Memori a 5-30 (Same As: l 22:05: Dulcolax, Bisco-Lax) Ondansetron No Notes: Dipesh simon 5-30 (Same as: l 22:05: Zofran) MEDICATION WASTE Product Size: 4 mg Product Wasted: ___ mg Melatonin No Notes: Memori a 5-30 (Same as: l 22:05: Melatonin) Morphine No 4 mg, Memoria 5-30 Route: l 18:52: IVP, ONCE, Dosing Weight 97.727, kg, Priority: STAT, Start date: 07/25/20 13:52:00 CDT, Stop date: 07/25/20 13:52:00 CDT Ondansetron No 4 mg, Memor ia 5-30 Route: l 18:52: IVP, Drug form: INJ, ONCE, Dosing Weight 97.727, kg, Priority: STAT, Start date: 07/25/20 13:52:00 CDT, Stop date: 07/25/20 13:52:00 CDT No known No [place] medications Health Vital Signs Vital Name Observation Time Observation Value Comments Source Systolic blood 2021-06-17 18:39:00 109 mm[Hg] Univer [facility] [place] Diastolic blood 2021-06-17 18:39:00 70 mm[Hg] Unive [facility] Heart rate 2021-06-17 18:39:00 85 /min [facility] Body temperature 2021-06-17 18:39:00 36.33 Celeste [facility] height 2021-06-17 18:39:00 175.3 cm [facility] Body weight 2021-06-17 18:39:00 91.082 kg [facility] BMI 2021-06-17 18:39:00 29.65 kg/m2 [facility] Oxygen saturation in 2021-06-17 18:39:00 99 /min [facility] blood by [facility] Pulse oximetry Branch Temperature Oral (F) 2020-07-30 20:52:00 97.8 F [facility] Heart Rate 2020-07-30 20:52:00 [facility] [place] Respitory Rate 2020-07-30 20:52:00 Memori al [place] Systolic (mm Hg) 2020-07-30 20:52:00 Dipesh rial [place] Diastolic (mm Hg) 2020-07-30 20:52:00 Mem orial Jaren Temperature Oral (F) 2020-07-30 16:57:00 98 F [facility] [place] Heart Rate 2020-07-30 16:57:00 [facility] [place] Respitory Rate 2020-07-30 16:57:00 Memori al [place] Systolic (mm Hg) 2020-07-30 16:57:00 Dipesh rial Jaren Diastolic (mm Hg) 2020-07-30 16:57:00 Mem orial [place] Temperature Oral (F) 2020-07-30 12:25:00 98.2 F [facility] Heart Rate 2020-07-30 12:25:00 [facility] Respitory Rate 2020-07-30 12:25:00 Memori al [place] Systolic (mm Hg) 2020-07-30 12:25:00 Dipesh rial [place] Diastolic (mm Hg) 2020-07-30 12:25:00 Mem orial Jaren Temperature Oral (F) 2020-07-26 04:22:00 98.8 F [facility] [place] Heart Rate 2020-07-26 04:22:00 [facility] Respitory Rate 2020-07-26 04:22:00 Memori al [place] Systolic (mm Hg) 2020-07-26 04:22:00 Dipesh rial [place] Diastolic (mm Hg) 2020-07-26 04:22:00 Mem orial [place] Temperature Oral (F) 2020-07-26 02:59:00 98.6 F [facility] [place] Heart Rate 2020-07-26 02:59:00 [facility] [place] Respitory Rate 2020-07-26 02:59:00 Memori al [place] Systolic (mm Hg) 2020-07-26 02:59:00 Dipesh rial Jaren Diastolic (mm Hg) 2020-07-26 02:59:00 Mem orial Jaren Temperature Oral (F) 2020-07-25 21:00:00 98.5 F [facility] [place] Heart Rate 2020-07-25 21:00:00 [facility] Respitory Rate 2020-07-25 21:00:00 Jodi Valentinann Systolic (mm Hg) 2020-07-25 21:00:00 Dipesh Eastman Diastolic (mm Hg) 2020-07-25 21:00:00 Micaela Eastman Height 2020-07-25 15:31:00 175.26 cm [facility] BMI Calculated 2020-07-25 15:31:00 Jodi Ruiz Weight 2020-07-25 15:31:00 [facility] Jaren Procedures This patient has no known procedures. Encounters Start End Encounter Admission Attending Care Care Encounter Source Date/Time Date/Time Type Type Clinicians Facility Department ID 2021-02-11 Outpatient [facility] [id number] [place] 08:10:56 [facility] 2020-12-15 Outpatient MARY [facility] [id number] [place] 12:32:47 [facility] 2020-12-10 Outpatient [facility] [id number] [place] 12:50:38 [facility] 2020-10-15 Outpatient [facility] [id number] [place] 09:59:19 [facility] 2020-09-03 Outpatient [facility] [id number] [place] 11:49:31 [facility] 2020-08-28 Outpatient KAT MARSH [facility] [id number] [place] 01:05:12 [facility] 2020-08-06 Outpatient [facility] [id number] [place] 15:33:14 [facility] 2019-07-06 Inpatient [facility] [id number] [facility] 13:[facility]:[address] [place] [address] l Hospita l 2021-11-16 2021-11-16 Patient Rola Quiñonez [id number] [facility] 00:00:00 00:00:00 Outreach E WU [id number] [place] [id number] [facility] [address] 2021-09-27 2021-09-27 Patient Rola QuiñonezEdu [id number] Univers 00:00:00 00:00:00 Outreach E WU [id number] [place] [id number] [facility] [address] 2021-06-17 2021-06-17 Office CRISTHIAN Cristobal [id number] Univers 13:30:00 13:48:32 Visit [facility] [id number] i ty [place] [id number] [facility] [address] 2021-06-17 2021-06-17 Outpatient R NADINE [facility] [id number] Univers 13:30:00 13:48:32 [facility] 2021-06-17 2021-06-17 [id number] Univers 13:30:00 13:48:32 [facility] 2021-06-17 2021-06-17 Orders Doctor DEEPAK [id number] Univers 00:00:00 00:00:00 Only Unassigned, CARMELO [id number] ity of [place] [facility] 4.2.7.2.686 Jaime as [id number] [facility] [address] 2021-06-13 2021-06-13 Transition REGAN Waller [id number] Univers 00:00:00 00:00:00 of Care Bibiana LYNNY [id number] [place] [id number] [facility] [address] 2021-06-06 2021-06-10 Inpatient X NADINE [facility] [id number] Univers 21:02:00 12:35:00 [facility] ity [facility] 2021-06-06 2021-06-10 Hospital AYANA Cristobal [id number] Univers 21:02:00 12:35:00 [facility] [id number] ity of [facility] 4.2.7.2.686 Jaime as [id number] [facility] 0[address] Branch 2021-06-06 2021-06-06 Emergency X SINGER [facility] [id number] Univers 16:39:00 19:57:00 MALACHI antonio [facility] 2021-06-06 2021-06-06 Emergency X SINGER [facility] ERT [id number] Univers 16:39:00 19:57:00 MALACHI antonio [facility] 2021-06-06 2021-06-06 Emergency Singer [facility] [id number] Univers 16:39:00 19:57:00 Malachi BURDEN 350.1.13.10 i ty [facility] 4.2.7.2.686 [facility] [id number] [address] 2020-12-15 2020-12-15 Office ZULEYMA GOMEZ [id number] [place] 10:23:12 10:38:12 Visit REEJU TRAUMA [id number] He alth CLINIC 9.2.7.2.686 [id number] 1 2020-12-15 2020-12-15 Orders Aubrie Scales [id number] [place] 00:00:00 00:00:00 Only Aubrie Scales TRAUMA [id number] Health CLINIC 9.2.7.2.686 [id number] 1 2020-10-20 2020-10-20 Office ZULEYMA Garcia [id number] [place] 11:03:38 11:32:33 Visit Kailey TRAUMA 350.1.13.58 He alth CLINIC 9.2.7.2.686 [id number] 1 2020-09-08 2020-09-08 Office ZULEYMA Garcia [id number] [place] 10:58:35 13:31:57 Visit Kailey TRAUMA [id number] He alth CLINIC 9.2.7.2.686 [id number] 1 2020-08-11 2020-08-11 Office ZULEYMA Garcia [id number] [place] 11:29:56 13:12:56 Visit Kailey TRAUMA 350.1.13.58 He alth CLINIC 9.2.7.2.686 [id number] 2020-07-25 2020-07-30 Inpatient nullFlavo [facility] [id number] Memoria 15:29:00 21:00:00 [facility] [place] 00 [facility] [place] 2020-07-25 2020-07-30 Inpatient E JULIO CESAR, [facility] [id number] [facility] 15:25:00 16:00:00 CARLOS 2020-07-25 2020-07-30 Outpatient Julio Cesar, [facility] [id number] 10:29:00 16:00:00 Carlos 00 Franc 2020-07-25 2020-07-25 Outpatient Simon, [facility] [id number] 10:29:00 10:29:00 Yves 00 Hannahelizabeth Results Test Description Test Time Test Comments Results Result Comments Source HEMATOLOGY 2020-07-30 10:42:00 Test Item Value Reference Range Interpretation Comme nts MCHC (test code = MCHC) 34.8 32.0-36.0 [id number] 10:42:00 Test Item Value Reference Range Interpretation Comments RDW (test code = RDW) 11.9 11.5-14.5 [facility] [id number] 10:42:00 Test Item Value Reference Range Interpretation Comments Platelet (test code = Platelet) 333 133-450 [facility] [id number] 10:42:00 Test Item Value Reference Range Interpretation Comments MPV (test code = MPV) 8.8 7.4-10.4 [facility] [id number] 10:42:00 Test Item Value Reference Range Interpretation Comments Segs (test code = Segs) 64.2 45.0-75.0 [facility] [id number] 10:42:00 Test Item Value Reference Range Interpretation Comments Lymphocytes (test code = Lymphocytes) 26.3 20.0-40.0 [facility] [id number] 10:42:00 Test Item Value Reference Range Interpretation Comments Monocytes (test code = Monocytes) 6.8 2.0-12.0 [facility] [id number] 10:42:00 Test Item Value Reference Range Interpretation Comments Eosinophils (test code = 2.2 See_Comment [A utomated message] The Eosinophils) system which ge nerated this result tra nsmitted reference range : <=4.0. The reference r zach was not used to int erpret this result as normal/abnormal . [facility] [id number] 10:42:00 Test Item Value Reference Range Interpretation Comments Basophils (test code = 0.5 See_Comment [Aut omated message] The Basophils) system which ge nerated this result tra nsmitted reference range : <=1.0. The reference r zach was not used to int erpret this result as normal/abnormal . [facility] [id number] 10:42:00 Test Item Value Reference Range Interpretation Comments Neutrophils # (test code = Neutrophils 4.7 1.5-8.1 #) [id number] 10:42:00 Test Item Value Reference Range Interpretation Comments Lymphocytes # (test code = Lymphocytes 1.9 1.0-5.5 #) [id number] 10:42:00 Test Item Value Reference Range Interpretation Comments Monocytes # (test code 0.5 See_Comment [Aut omated message] The = Monocytes #) system which generated this result tra nsmitted reference range : <=0.8. The reference r zach was not used to int erpret this result as normal/abnormal . [facility]hkpyvwAVDHFQYKYK2099-79-55 10:42:00 Test Item Value Reference Range Interpretation Comments Eosinophils # (test code 0.2 See_Comment [A utomated message] The = Eosinophils #) system whic h generated this result tra nsmitted reference range : <=0.5. The reference r zach was not used to int erpret this result as normal/abnormal . [facility]2021-06-04 10:42:00 Test Item Value Reference Range Interpretation Comments Glucose Lvl (test code = Glucose Lvl) 90 70-99 [facility]2021-06-04 10:42:00 Test Item Value Reference Range Interpretation Comments BUN (test code = BUN) 18 7-22 [facility]2021-06-04 10:42:00 Test Item Value Reference Range Interpretation Comments Creatinine Lvl (test code = Creatinine 0.77 0.50-1.40 Lvl) [facility]2021-06-04 10:42:00 Test Item Value Reference Range Interpretation Comments Sodium Lvl (test code = Sodium Lvl) 143 135-145 [facility]2021-06-04 10:42:00 Test Item Value Reference Range Interpretation Comments Potassium Lvl (test code = Potassium 4.0 3.5-5.1 Lvl) [facility]2021-06-04 10:42:00 Test Item Value Reference Range Interpretation Comments Chloride Lvl (test code = Chloride Lvl) 107 95-109 [facility]2021-06-04 10:42:00 Test Item Value Reference Range Interpretation Comments CO2 (test code = CO2) 27 24-32 [place] 492601-06-04 10:42:00 Test Item Value Reference Range Interpretation Comments Calcium Lvl (test code = Calcium Lvl) 8.5 8.5-10.5 [place] 492601-06-04 10:42:00 Test Item Value Reference Range Interpretation Comments AGAP (test code = AGAP) 13.0 10.0-20.0 [facility]2021-06-04 10:42:00 Test Item Value Reference Range Interpretation Comments eGFR (test code = eGFR) 129 [facility]2021-06-04 10:42:00 Test Item Value Reference Range Interpretation Comments Phosphorus (test code = Phosphorus) 4.1 2.5-4.5 [facility]2021-06-04 10:42:00 Test Item Value Reference Range Interpretation Comments Magnesium Lvl (test code = Magnesium 2.0 1.8-2.4 Lvl) [facility]ZhxkgffGBRMCBVGPL3154-43-30 10:42:00 Test Item Value Reference Range Interpretation Comments WBC (test code = WBC) 7.4 3.7-10.4 [place] 645981-06-04 10:42:00 Test Item Value Reference Range Interpretation Comments RBC (test code = RBC) 4.09 4.70-6.10 [place] 645981-06-04 10:42:00 Test Item Value Reference Range Interpretation Comments Hgb (test code = Hgb) 12.4 14.0-18.0 [place] 645981-06-04 10:42:00 Test Item Value Reference Range Interpretation Comments Hct (test code = Hct) 35.7 42.0-54.0 [place] 645981-06-04 10:42:00 Test Item Value Reference Range Interpretation Comments MCV (test code = MCV) 87.4 80.0-94.0 [facility]UkpvhbyXQRFBFCBUV5129-73-03 10:42:00 Test Item Value Reference Range Interpretation Comments MCH (test code = MCH) 30.4 pg 27.0-31.0 [facility]2021-06-03 09:43:00 Test Item Value Reference Range Interpretation Comments Phosphorus (test code = Phosphorus) 3.9 2.5-4.5 [facility]2021-06-03 09:43:00 Test Item Value Reference Range Interpretation Comments Glucose Lvl (test code = Glucose Lvl) 83 70-99 [facility]2021-06-03 09:43:00 Test Item Value Reference Range Interpretation Comments BUN (test code = BUN) 15 7-22 [facility]2021-06-03 09:43:00 Test Item Value Reference Range Interpretation Comments Creatinine Lvl (test code = Creatinine 0.78 0.50-1.40 Lvl) [facility]2021-06-03 09:43:00 Test Item Value Reference Range Interpretation Comments Sodium Lvl (test code = Sodium Lvl) 140 135-145 [facility]2021-06-03 09:43:00 Test Item Value Reference Range Interpretation Comments Potassium Lvl (test code = Potassium 4.0 3.5-5.1 Lvl) [facility]2021-06-03 09:43:00 Test Item Value Reference Range Interpretation Comments Chloride Lvl (test code = Chloride Lvl) 104 95-109 [facility]2021-06-03 09:43:00 Test Item Value Reference Range Interpretation Comments CO2 (test code = CO2) 29 24-32 [place] 492601-06-03 09:43:00 Test Item Value Reference Range Interpretation Comments Calcium Lvl (test code = Calcium Lvl) 9.0 8.5-10.5 [facility]2021-06-03 09:43:00 Test Item Value Reference Range Interpretation Comments AGAP (test code = AGAP) 11.0 10.0-20.0 [place] 492601-06-03 09:43:00 Test Item Value Reference Range Interpretation Comments eGFR (test code = eGFR) 128 [place] 492601-06-03 09:43:00 Test Item Value Reference Range Interpretation Comments Magnesium Lvl (test code = Magnesium 2.2 1.8-2.4 Lvl) [place] 645981-06-03 09:43:00 Test Item Value Reference Range Interpretation Comments Segs (test code = Segs) 71.1 45.0-75.0 [place] 645981-06-03 09:43:00 Test Item Value Reference Range Interpretation Comments Lymphocytes (test code = Lymphocytes) 20.6 20.0-40.0 [place] 645981-06-03 09:43:00 Test Item Value Reference Range Interpretation Comments Monocytes (test code = Monocytes) 7.4 2.0-12.0 [place] 645981-06-03 09:43:00 Test Item Value Reference Range Interpretation Comments Eosinophils (test code = 0.5 See_Comment [A utomated message] The Eosinophils) system which ge nerated this result tra nsmitted reference range : <=4.0. The reference r zach was not used to int erpret this result as normal/abnormal . [place] 645981-06-03 09:43:00 Test Item Value Reference Range Interpretation Comments Basophils (test code = 0.4 See_Comment [Aut omated message] The Basophils) system which ge nerated this result tra nsmitted reference range : <=1.0. The reference r zach was not used to int erpret this result as normal/abnormal . [place] 645981-06-03 09:43:00 Test Item Value Reference Range Interpretation Comments Neutrophils # (test code = Neutrophils 7.6 1.5-8.1 #) [place] 645981-06-03 09:43:00 Test Item Value Reference Range Interpretation Comments Lymphocytes # (test code = Lymphocytes 2.2 1.0-5.5 #) [place] [address]-06-03 09:43:00 Test Item Value Reference Range Interpretation Comments Monocytes # (test code 0.8 See_Comment [Aut omated message] The = Monocytes #) system which generated this result tra nsmitted reference range : <=0.8. The reference r zach was not used to int erpret this result as normal/abnormal . [place] [address]-06-03 09:43:00 Test Item Value Reference Range Interpretation Comments Eosinophils # (test code 0.1 See_Comment [A utomated message] The = Eosinophils #) system whic h generated this result tra nsmitted reference range : <=0.5. The reference r zach was not used to int erpret this result as normal/abnormal . [facility] CenterYcgncbzTTHGMFEYRY7693-37-00 09:43:00 Test Item Value Reference Range Interpretation Comments WBC (test code = WBC) 10.7 3.7-10.4 [facility] CenterNunrcpnSZRURVRBPM0179-40-69 09:43:00 Test Item Value Reference Range Interpretation Comments RBC (test code = RBC) 4.44 4.70-6.10 [facility] CenterNxqkifgOLFRPQJQLJ1162-46-94 09:43:00 Test Item Value Reference Range Interpretation Comments Hgb (test code = Hgb) 13.3 14.0-18.0 [facility] CenterJkoghxwHSVTWEBYIW6260-92-25 09:43:00 Test Item Value Reference Range Interpretation Comments Hct (test code = Hct) 38.6 42.0-54.0 [facility] CenterJpmvbexFZCBOBUAWT0815-39-10 09:43:00 Test Item Value Reference Range Interpretation Comments MCV (test code = MCV) 87.1 80.0-94.0 [facility] CenterJugldwaUJTCQQMHAA6304-75-81 09:43:00 Test Item Value Reference Range Interpretation Comments MCH (test code = MCH) 30.0 pg 27.0-31.0 [facility] CenterDeijplyVBEYMVMPES1772-32-77 09:43:00 Test Item Value Reference Range Interpretation Comments MCHC (test code = MCHC) 34.5 32.0-36.0 [facility] CenterFlhiolvBEARJXLZTL8107-30-25 09:43:00 Test Item Value Reference Range Interpretation Comments RDW (test code = RDW) 12.3 11.5-14.5 [facility] CenterMmknidcNUZYQFNFKF5862-12-17 09:43:00 Test Item Value Reference Range Interpretation Comments Platelet (test code = Platelet) 338 133-450 [facility] CenterMsgrutfWNBBVIEGUQ3156-94-24 09:43:00 Test Item Value Reference Range Interpretation Comments MPV (test code = MPV) 8.3 7.4-10.4 [facility] BANK CPJRRDU5087-10-11 07:47:00 Test Item Value Reference Range Interpretation Comments ABO/Rh (test code = ABO/Rh) O NEG [facility] BANK EDUSMHR0513-58-24 07:47:00 Test Item Value Reference Range Interpretation Comments Antibody Scrn (test Negative (07/28/20 2:47 code = Antibody Scrn) AM) [place] 492601-06-02 07:47:00 Test Item Value Reference Range Interpretation Comments Glucose Lvl (test code = Glucose Lvl) 57 70-99 [place] 492601-06-02 07:47:00 Test Item Value Reference Range Interpretation Comments BUN (test code = BUN) 12 7-22 [place] 492601-06-02 07:47:00 Test Item Value Reference Range Interpretation Comments Creatinine Lvl (test code = Creatinine 0.81 0.50-1.40 Lvl) [facility]2021-06-02 07:47:00 Test Item Value Reference Range Interpretation Comments Sodium Lvl (test code = Sodium Lvl) 139 135-145 [facility]2021-06-02 07:47:00 Test Item Value Reference Range Interpretation Comments Potassium Lvl (test code = Potassium 3.7 3.5-5.1 Lvl) [place] 492601-06-02 07:47:00 Test Item Value Reference Range Interpretation Comments Chloride Lvl (test code = Chloride Lvl) 105 95-109 [facility]2021-06-02 07:47:00 Test Item Value Reference Range Interpretation Comments CO2 (test code = CO2) 29 24-32 [facility]2021-06-02 07:47:00 Test Item Value Reference Range Interpretation Comments AGAP (test code = AGAP) 8.7 10.0-20.0 [place] 492601-06-02 07:47:00 Test Item Value Reference Range Interpretation Comments Calcium Lvl (test code = Calcium Lvl) 9.2 8.5-10.5 [place] 492601-06-02 07:47:00 Test Item Value Reference Range Interpretation Comments eGFR (test code = eGFR) 126 [place] 645981-06-02 07:47:00 Test Item Value Reference Range Interpretation Comments WBC (test code = WBC) 10.2 3.7-10.4 [place] 645981-06-02 07:47:00 Test Item Value Reference Range Interpretation Comments RBC (test code = RBC) 4.61 4.70-6.10 [place] 645981-06-02 07:47:00 Test Item Value Reference Range Interpretation Comments Hgb (test code = Hgb) 13.7 14.0-18.0 [place] 645981-06-02 07:47:00 Test Item Value Reference Range Interpretation Comments Hct (test code = Hct) 40.4 42.0-54.0 [place] 645981-06-02 07:47:00 Test Item Value Reference Range Interpretation Comments MCV (test code = MCV) 87.6 80.0-94.0 [place] 645981-06-02 07:47:00 Test Item Value Reference Range Interpretation Comments MCH (test code = MCH) 29.8 pg 27.0-31.0 [place] 645981-06-02 07:47:00 Test Item Value Reference Range Interpretation Comments MCHC (test code = MCHC) 34.1 32.0-36.0 [place] 645981-06-02 07:47:00 Test Item Value Reference Range Interpretation Comments RDW (test code = RDW) 12.3 11.5-14.5 [place] [address]-06-02 07:47:00 Test Item Value Reference Range Interpretation Comments Platelet (test code = Platelet) 319 513-450 [place] 645981-06-02 07:47:00 Test Item Value Reference Range Interpretation Comments MPV (test code = MPV) 8.4 7.4-10.4 [place] [address]-06-02 07:47:00 Test Item Value Reference Range Interpretation Comments Segs (test code = Segs) 68.3 45.0-75.0 [place] [address]-06-02 07:47:00 Test Item Value Reference Range Interpretation Comments Lymphocytes (test code = Lymphocytes) 21.6 20.0-40.0 [place] 645981-06-02 07:47:00 Test Item Value Reference Range Interpretation Comments Monocytes (test code = Monocytes) 7.5 2.0-12.0 [place] [address]-06-02 07:47:00 Test Item Value Reference Range Interpretation Comments Eosinophils (test code = 2.2 See_Comment [A utomated message] The Eosinophils) system which ge nerated this result tra nsmitted reference range : <=4.0. The reference r zach was not used to int erpret this result as normal/abnormal . [facility] CenterHkqgosyFOPRJKKAPB0557-48-71 07:47:00 Test Item Value Reference Range Interpretation Comments Basophils (test code = 0.4 See_Comment [Aut omated message] The Basophils) system which ge nerated this result tra nsmitted reference range : <=1.0. The reference r zach was not used to int erpret this result as normal/abnormal . [facility] CenterIiadsdrAJHMLWMTQV2333-39-84 07:47:00 Test Item Value Reference Range Interpretation Comments Neutrophils # (test code = Neutrophils 7.0 1.5-8.1 #) [facility] CenterXxliyvbGXQKUMGRFC1182-99-96 07:47:00 Test Item Value Reference Range Interpretation Comments Lymphocytes # (test code = Lymphocytes 2.2 1.0-5.5 #) [place] 645981-06-02 07:47:00 Test Item Value Reference Range Interpretation Comments Monocytes # (test code 0.8 See_Comment [Aut omated message] The = Monocytes #) system which generated this result tra nsmitted reference range : <=0.8. The reference r zach was not used to int erpret this result as normal/abnormal . [facility] CenterVekslfzQTCPJXNPHS3115-80-30 07:47:00 Test Item Value Reference Range Interpretation Comments Eosinophils # (test code 0.2 See_Comment [A utomated message] The = Eosinophils #) system whic h generated this result tra nsmitted reference range : <=0.5. The reference r zach was not used to int erpret this result as normal/abnormal . [facility] CenterUbnbznuFHGEQRKGJJ8694-32-65 09:01:00 Test Item Value Reference Range Interpretation Comments RBC Morph (test code = Normal (07/26/20 4:01 RBC Morph) AM) [facility] CenterLcetnmuNFNBQXOAXJ7876-25-39 19:27:00 Test Item Value Reference Range Interpretation Comments Coronavirus (COVID-19) Not Detected (07/25/20 PORFIRIO (test code = 2:27 PM) Coronavirus (COVID-19) PORFIRIO) [facility] CenterCHEM GFQUV7725-21-73 17:10:57 Test Item Value Reference Range Interpretation Comments Glucose Lvl (test code = Glucose Lvl) 123 70-99 [place] 492601-05-30 17:10:57 Test Item Value Reference Range Interpretation Comments BUN (test code = BUN) 12 7-22 [place] [address]-05-30 17:10:57 Test Item Value Reference Range Interpretation Comments Creatinine Lvl (test code = Creatinine 1.21 0.50-1.40 Lvl) [place] 492601-05-30 17:10:57 Test Item Value Reference Range Interpretation Comments Sodium Lvl (test code = Sodium Lvl) 144 135-[address]05-30 17:10:57 Test Item Value Reference Range Interpretation Comments Potassium Lvl (test code = Potassium 3.7 3.5-5.1 Lvl) [address]05-30 17:10:57 Test Item Value Reference Range Interpretation Comments Chloride Lvl (test code = Chloride Lvl) 111 95-109 [place] 492601-05-30 17:10:57 Test Item Value Reference Range Interpretation Comments CO2 (test code = CO2) 25 24-32 [place] [address]-05-30 17:10:57 Test Item Value Reference Range Interpretation Comments Calcium Lvl (test code = Calcium Lvl) 8.3 8.5-10.5 [place] [address]-05-30 17:10:57 Test Item Value Reference Range Interpretation Comments AGAP (test code = AGAP) 11.7 10.0-20.0 [place] 492601-05-30 17:10:57 Test Item Value Reference Range Interpretation Comments eGFR (test code = eGFR) 84 [place] [address]-05-30 17:10:57 Test Item Value Reference Range Interpretation Comments PT (test code = PT) 12.4 s 12.0-14.[address]05-30 17:10:57 Test Item Value Reference Range Interpretation Comments INR (test code = INR) 0.93 1 0.85-1.17 [place] [address]-05-30 17:10:57 Test Item Value Reference Range Interpretation Comments PTT (test code = PTT) 30.1 s 22.9-35.8 [place] [address]-05-30 16:41:27 Test Item Value Reference Range Interpretation Comments RBC Morph (test code = Normal (07/25/20 11:41 RBC Morph) AM) [place] 645981-05-30 16:41:27 Test Item Value Reference Range Interpretation Comments Plt Morph (test code = See Note 1(07/25/20 Plt Morph) 11:41 AM) [facility] CenterLfdoysnZPGDEYGUWA0228-22-87 16:41:27 Test Item Value Reference Range Interpretation Comments Basophils # (test code 0.1 See_Comment [Aut omated message] The = Basophils #) system which generated this result tra nsmitted reference range : <=0.2. The reference r zach was not used to int erpret this result as normal/abnormal . [facility] CenterCpndsnnGVOPBRTXZO8534-61-02 16:41:27 Test Item Value Reference Range Interpretation Comments WBC X 10x3 (test code = WBC X 10x3) 12.6 3.7-10.4 [facility] CenterLtrsjpkUXAQBCDSIR2456-85-18 16:41:27 Test Item Value Reference Range Interpretation Comments RBC X 10x6 (test code = RBC X 10x6) 5.15 4.70-6.10 [facility] CenterZoqnkdqTAFVXQZHOY9299-82-55 16:41:27 Test Item Value Reference Range Interpretation Comments Hgb (test code = Hgb) 15.2 14.0-18.0 [place] 645981-05-30 16:41:27 Test Item Value Reference Range Interpretation Comments Hct (test code = Hct) 44.2 42.0-54.0 [facility] CenterXwfjwhpTDGPWWJWCV5483-03-02 16:41:27 Test Item Value Reference Range Interpretation Comments MCV (test code = MCV) 85.9 80.0-94.0 [place] [address]-05-30 16:41:27 Test Item Value Reference Range Interpretation Comments MCH (test code = MCH) 29.6 pg 27.0-31.0 [facility] CenterQgzjpgmSOVMROBRHR5571-08-03 16:41:27 Test Item Value Reference Range Interpretation Comments MCHC (test code = MCHC) 34.4 32.0-36.0 [facility] CenterVmmomsfXODHIRXDFH9475-48-41 16:41:27 Test Item Value Reference Range Interpretation Comments RDW (test code = RDW) 12.5 11.5-14.5 [place] 645981-05-30 16:41:27 Test Item Value Reference Range Interpretation Comments Platelet (test code = Platelet) 356 133-450 [place] 645981-05-30 16:41:27 Test Item Value Reference Range Interpretation Comments MPV (test code = MPV) 8.2 7.4-10.4 [place] 645981-05-30 16:41:27 Test Item Value Reference Range Interpretation Comments Segs (test code = Segs) 76.9 45.0-75.0 [place] [address]-05-30 16:41:27 Test Item Value Reference Range Interpretation Comments Lymphocytes (test code = Lymphocytes) 17.5 20.0-40.0 [place] [address]-05-30 16:41:27 Test Item Value Reference Range Interpretation Comments Monocytes (test code = Monocytes) 4.9 2.0-12.0 [place] 645981-05-30 16:41:27 Test Item Value Reference Range Interpretation Comments Eosinophils (test code = 0.1 See_Comment [A utomated message] The Eosinophils) system which ge nerated this result tra nsmitted reference range : <=4.0. The reference r zach was not used to int erpret this result as normal/abnormal . [facility] CenterBvkrowjBMEGNFUMCP3034-61-75 16:41:27 Test Item Value Reference Range Interpretation Comments Basophils (test code = 0.6 See_Comment [Aut omated message] The Basophils) system which ge nerated this result tra nsmitted reference range : <=1.0. The reference r zach was not used to int erpret this result as normal/abnormal . [facility] CenterEjwzhyaNLGAXOHITE9867-58-15 16:41:27 Test Item Value Reference Range Interpretation Comments Neutrophils # (test code = Neutrophils 9.7 1.5-8.1 #) [place] [address]-05-30 16:41:27 Test Item Value Reference Range Interpretation Comments Lymphocytes # (test code = Lymphocytes 2.2 1.0-5.5 #) [facility] CenterSzwlxchGCJZOFFIJQ4022-30-74 16:41:27 Test Item Value Reference Range Interpretation Comments Monocytes # (test code 0.6 See_Comment [Aut omated message] The = Monocytes #) system which generated this result tra nsmitted reference range : <=0.8. The reference r zach was not used to int erpret this result as normal/abnormal . [facility] Otonomy DCZWALH8163-30-80 16:41:00 Test Item Value Reference Range Interpretation Comments ABO/Rh (test code = ABO/Rh) O NEG [facility] Otonomy QNXUBCO8189-75-26 16:41:00 Test Item Value Reference Range Interpretation Comments Antibody Scrn (test Negative (07/25/20 code = Antibody Scrn) 11:41 AM) [facility]- XR SHOULDER 1 V [id number] 15:58:00 FAX: Vincenzo Garcia MD [place]: [facility] St: REG Name: [facility] : 2000 Age/S: 19/M [address] Unit #: [id number] Loc: [place] [address] Phys: Vincenzo Lan MD Acct: [id number] Dis Date: Status: REG ER PHONE #: [phone] Exam Date: 07/06/2019 1544 FAX #: [phone] Reason: post reduction EXAMS: CPT CODE: [id number] XR SHOULDER 1 V RT 28466 Location code: H5 Right Shoulder 2 Views Indication: post reduction. Comparison: 07/06/2019. Findings: The acromioclavicular jointdemonstrates mild hypertrophic spurring. Anteroinferior dislocation of the humerus The glenoid is intact. No evidence of fracture. Soft tissues are unremarkable. Impression: 1. Anteroinferior shoulder dislocation.. at 1558 Reported and signed by: YVES PINA M.D. CC: Vincenzo Lan MD Technologist: Karin Scales RT (R) CT (R) Trnscrd Date/Time/By: 07/06/2019 (3999) : By: [email or web address] Orig Print D/T: S: 07/06/2019 (6275) PAGE 1 Signed Report- XR KNEE 3 V [id number] 14:23:00 FAX: Vincenzo Garcia MD [place]: [facility] St: REG Name: [facility] : 2000 Age/S: 19/M [address] [facility] Unit #: [id number] Loc: [place] [address] Phys: Vincenzo Lan MD Acct: [id number] Dis Date: Status: REG ER PHONE #: [phone] Exam Date: 07/06/2019 1414 FAX #: [phone] Reason: fall EXAMS: CPT CODE: [id number] XR KNEE 3 V RT 15161 - XR KNEE 3 V RT PROVIDED REASON FOR EXAM: fall Comparison: None available. FINDINGS: Joint is anatomic alignment. Joint spaces are well-maintained. Prepatellar soft tissue swelling. Small joint effusion. IMPRESSION: Prepatellar soft tissue swelling and small joint effusion without acute osseous process Location: H13 at 1423 Reported and signed by: MURPHY GRIMES M.D.CC: Vincenzo Lan MD Technologist: Karin Scales RT (R) CT (R) Trnscrd Date/Time/By: 07/06/2019 (4969) : By: [email or web address] Orig Print D/T: S: 07/06/2019 (1826) PAGE 1 Signed Report- XR SHOULDER 1 V RT 2019-07-06 14:22:00 FAX: Vincenzo Garcia MD [place]: [facility] St: REG Name: KANNAN [facility] : 2000 Age/S: 19/M [address] Unit #: [id number] Loc: [place] [address] Phys: Vincenzo Lan MD Acct: [id number] Dis Date: Status: REG ER PHONE #: [phone] Exam Date: 07/06/2019 1416 FAX #: [phone] Reason: fall EXAMS: CPT CODE: [id number] XR SHOULDER 1 V RT 65622 - XR SHOULDER 1 V RT PROVIDED [...] (R) Trnscrd Date/Time/By: 07/06/2019 (142) : By: [email or web address] Orig Print D/T: S: 07/06/2019 (1426) PAGE 1 Signed Report
[2022-02-12 20:14] LABS: Absolute Lymphocytes (CBC) 1.4 K/uL (0.7-4.9); Hematocrit 45.2 % (39.6-49.0); Lymphocytes % 20.1 % (15.3-44.8); MCV 85.8 fL (80-100); MPV 8.1 fL (7.6-11.3); RBC Red Blood Cell Count 5.27 M/uL (4.33-5.43)
--- NOTE | 2022-02-12 20:25 | RAD REPORT ---
EXAM DESCRIPTION: RAD - Chest Single View - 02/12/2022 8:12 pm CLINICAL HISTORY: PALPITATIONS COMPARISON: October 2010 TECHNIQUE: AP portable chest image was obtained 02/12/2022 8:12 pm . FINDINGS: Lungs are clear. Heart and vasculature are normal. No measurable pleural effusion and no p neumothorax. No acute bony abnormality seen. No acute aortic findings suspected. IMPRESSION: No acute cardiopulmonary process.
[2022-02-12 20:29] LABS: Protime INR 1.1
[2022-02-12 20:48] LABS: Urine Blood Negative (Negative); Urine Glucose Negative (Negative); Urine Protein Negative (Negative)
[2022-02-13 01:25] LABS: ALT/SGPT 64 U/L (16-61); Albumin 3.9 g/dL (3.4-5.0); Alkaline Phosphatase 96 U/L (45-117); BUN Blood Urea Nitrogen 11 mg/dL (7-18); Bicarbonate 31 mmol/L (21-32); Bilirubin Total 0.3 mg/dL (0.2-1.0); Creatine Phosphokinase 139 U/L (39-308); Glomerular Filtration Rate 126 ml/min (=/>90); Glucose Level 95 mg/dL (74-106); Protein, Total 7.3 g/dL (6.4-8.2); Sodium Level 138 mmol/L (136-145); Troponin High Sensitivity 6.2 pg/mL (<58.9)
[2022-02-13 02:00] LABS: AST/SGOT 28 U/L (15-37); Bilirubin Direct < 0.1 mg/dL (0-0.2); Magnesium 1.9 mg/dL (1.6-2.4); Potassium 4.1 mmol/L (3.5-5.1)
--- NOTE | 2022-02-13 02:06 | EDPHYS ---
Physician Documentation [facility] Name: Mitch Ho Age: 21 yrs Sex: Male : 2000 Arrival Date: 02/12/2022 Time: 19:05 Bed 16 Private MD: ED Physician Fady Silva HPI: 02/12 19:18 This 21 yrs old Male presents to ER via Ambulatory with complaints of kb Palpitations, Dizziness. 19:18 The patient presents with a history of heart racing. Context: The symptoms occur at kb rest. Onset: The symptoms/episode began/occurred 1 hour(s) ago. Duration: The patient or guardian reports multiple episodes, that are intermittent. Modifying factors: The symptoms are aggravated by anxiety, The symptoms are alleviated by nothing. Associated signs and symptoms: Pertinent positives: near-syncope. Severity of symptoms: At their worst the symptoms were moderate in the emergency department the symptoms have improved. The patient has not experienced similar symptoms in the past. The patient has not recently seen a physician. Pt reports he was laying down an hour ago and felt like he was going to pass out. States he got scared and his heart started racing. States he still feels like he is going to pass out. Historical: - Allergies: 19:12 No Known Allergies; hb - Home Meds: 19:13 None [Active]; hb - PMHx: 19:13 None; hb - PSHx: 19:13 leg - Left; hb - Immunization history:: Adult Immunizations up to date. - Social history:: Smoking status: Patient denies any tobacco usage or history of. ROS: 19:20 Constitutional: Negative for fever, chills, and weight loss. kb 19:20 Cardiovascular: Positive for palpitations. 19:20 Neuro: Positive for near syncope. 19:20 All other systems are negative. Exam: 19:20 Constitutional: This is a well developed, well nourished patient who is awake, alert, kb and in no acute distress. Head/Face: Normocephalic, atraumatic. ENT: Moist Mucous membranes Cardiovascular: Regular rate and rhythm with a normal S1 and S2. No gallops, murmurs, or rubs. No pulse deficits. Respiratory: Respirations even and unlabored. No increased work of breathing. Talking in full sentences Abdomen/GI: Soft, non-tender. No distention Skin: Warm, dry with normal turgor. Normal color. MS/ Extremity: Pulses equal, no cyanosis. Neurovascular intact. Full, normal range of motion. Neuro: Awake and alert, GCS 15, oriented to person, place, time, and situation. Moves all extremities. Normal gait. Psych: Awake, alert, with orientation to person, place and time. Behavior, mood, and affect are within normal limits. 19:46 ECG was reviewed by the Attending Physician. kb Vital Signs: 19:12 BP 130 / 92; Pulse 101; Resp 16; Temp 98.3; Pulse Ox 99% on R/A; Weight 90.72 kg; hb Height 5 ft. 9 in. (175.26 cm); Pain 0/10; 20:09 BP 116 / 66 RA Supine; Pulse 80; Resp 17; oe 20:12 BP 112 / 77 RA Sitting; Pulse 72; Resp 16; oe 20:14 BP 125 / 84 RA Standing; Pulse 93; Resp 20; oe 21:00 BP 125 / 81; Pulse 90; Resp 17; Pulse Ox 100% on R/A; jb4 22:00 BP 123 / 72; Pulse 80; Resp 16; Pulse Ox 100% on R/A; jb4 23:00 BP 122 / 79; Pulse 84; Resp 23 S; Pulse Ox 99% on R/A; jb4 02/13 00:43 BP 102 / 72; Pulse 72; Resp 16; Pulse Ox 97% on R/A; jb4 02:15 BP 124 / 90; Pulse 74; Resp 19; Pulse Ox 97% on R/A; jb4 02/12 19:12 Body Mass Index 29.53 (90.72 kg, 175.26 cm) hb MDM: 02/12 19:13 Patient medically screened. kb 19:20 Data reviewed: vital signs, nurses notes. Data interpreted: Pulse oximetry: on room air kb is 99 %. Interpretation: normal. 02/13 00:40 Transition of care: After a detail discussion of the patient's case, care is kb transferred to Fady Silva MD. 02:05 Counseling: I had a detailed discussion with the patient and/or guardian regarding: the rn historical points, exam findings, and any diagnostic results supporting the discharge/admit diagnosis, lab results, radiology results, the need for outpatient follow up, to return to the emergency department if symptoms worsen or persist or if there are any questions or concerns that arise at home. Response to treatment: the patient's symptoms have markedly improved after treatment, and as a result, I will discharge patient. Special discussion: I discussed with the patient/guardian in detail that at this point there is no indication for admission to the hospital. It is understood, however, that if the symptoms persist or worsen the patient needs to return immediately for re-evaluation. Based on the history and exam findings, there is no indication for further emergent testing or inpatient evaluation. I discussed with the patient/guardian the need to see the clinical marketing manager for further evaluation of the symptoms. I discussed with the patient/guardian the need to see the primary care provider for further evaluation of the symptoms. 02/12 19:14 Order name: Basic Metabolic Panel; Complete Time: 02:05 kb 02/12 19:14 Order name: CBC with Diff; Complete Time: 20:28 kb 02/12 19:14 Order name: CPK; Complete Time: 02:05 kb 02/12 19:14 Order name: Hepatic Function; Complete Time: 02:05 kb 02/12 19:14 Order name: Magnesium; Complete Time: 02:05 kb 02/12 19:14 Order name: Protime (+inr); Complete Time: 20:30 kb 02/12 19:14 Order name: Ptt, Activated; Complete Time: 20:30 kb 02/12 19:14 Order name: Troponin High Sensitivity; Complete Time: 02:05 kb 02/12 19:14 Order name: Chest Single View XRAY; Complete Time: 20:28 kb 02/12 19:14 Order name: EKG; Complete Time: 19:14 kb 02/12 19:14 Order name: Cardiac monitoring; Complete Time: 20:06 kb 02/12 19:14 Order name: EKG - Nurse/Tech; Complete Time: 20:06 kb 02/12 19:14 Order name: IV Saline Lock; Complete Time: 20:06 kb 02/12 20:48 Order name: Urine Dipstick-Ancillary; Complete Time: 20:49 EDMS 02/12 19:14 Order name: Labs collected and sent; Complete Time: 20:06 kb 02/12 19:14 Order name: NPO; Complete Time: 20:06 kb 02/12 19:14 Order name: O2 Per Protocol; Complete Time: 20:06 kb 02/12 19:14 Order name: O2 Sat Monitoring; Complete Time: 20:06 kb 02/12 19:14 Order name: Orthostatics; Complete Time: 21:05 kb 02/12 19:14 Order name: Urine Dipstick-Ancillary (obtain specimen); Complete Time: 20:56 kb 02/13 00:34 Order name: Misc. Order: recollect labs; Complete Time: 00:53 kb EC/18 19:46 Rate is 89 beats/min. Rhythm is regular. QRS [place] is Normal. [place] interval is normal at kb 148 msec. QRS interval is normal at 88 msec. QT interval is normal at 416 msec. Administered Medications: No medications were administered Disposition: 02/13 05:44 Co-signature as Attending Physician, Fady Silva MD. rn Disposition Summary: 02/13/22 02:06 Discharge Ordered Location: Home rn Problem: new rn Symptoms: have improved rn Condition: Stable rn Diagnosis - Palpitations rn - Dizziness and giddiness rn Followup: rn - With: Private Physician - When: As needed - Reason: Recheck today's complaints, Re-evaluation by your physician Discharge Instructions: - Discharge Summary Sheet rn - Dizziness rn - Palpitations rn Forms: - Medication Reconciliation Form rn - Thank You Letter rn - Antibiotic improvement intern - Prescription Opioid Use rn Signatures: Dispatcher [employer] Skye Bolden, BULK COOLER INSTALLER-C BULK COOLER INSTALLER-CkFady Espinoza MD MD rn Baxter, Heather, RN RN hb
--- NOTE | 2022-02-13 02:06 | ER ---
Nurse's Notes [facility] Name: Mitch Ho Age: 21 yrs Sex: Male : 2000 Arrival Date: 02/12/2022 Time: 19:05 Bed 16 Private MD: Diagnosis: Palpitations;Dizziness and giddiness Presentation: 02/12 19:11 Chief complaint: Patient states: "My heart is racing and I feel like I am going to hb faint.". Coronavirus screen: At this time, the client does not indicate any symptoms associated with coronavirus-19. Ebola Screen: No symptoms or risks identified at this time. Initial Sepsis Screen: Does the patient meet any 2 criteria? No. Patient's initial sepsis screen is negative. Does the patient have a suspected source of infection? No. Patient's initial sepsis screen is negative. Risk Assessment: Do you want to hurt yourself or someone else? Patient reports no desire to harm self or others. Onset of symptoms was February 12, 2022. 19:11 Method Of Arrival: Ambulatory hb 19:11 Acuity: SALAS 3 hb Historical: - Allergies: 19:12 No Known Allergies; hb - Home Meds: 19:13 None [Active]; hb - PMHx: 19:13 None; hb - PSHx: 19:13 leg - Left; hb - Immunization history:: Adult Immunizations up to date. - Social history:: Smoking status: Patient denies any tobacco usage or history of. Screenin:50 [facility] ED Fall Risk Assessment (Adult) History of falling in the last 3 months, jb4 including since admission No falls in past 3 months (0 pts) Confusion or Disorientation No (0 pts) Intoxicated or Sedated No (0 pts) Impaired Gait No (0 pts) Mobility Assist Device Used No (0 pt) Altered Elimination No (0 pt) Score/Fall Risk Level 0 - 2 = Low Risk Oriented to surroundings, Maintained a safe environment. 19:50 Abuse screen: Denies threats or abuse. Nutritional screening: No deficits noted. jb4 Tuberculosis screening: No symptoms or risk factors identified. Fall Risk No fall in past 12 months (0 pts). No secondary diagnosis (0 pts). IV access (20 points). Ambulatory Aid- None/Bed Rest/Nurse Assist (0 pts). Gait- Normal/Bed Rest/Wheelchair (0 pts) Mental Status- Oriented to own ability (0 pts). Total Cutler Fall Scale indicates No Risk (0-24 pts). Assessment: 19:50 General: Appears in no apparent distress. comfortable, Behavior is calm, cooperative, jb4 appropriate for age. Pain: Denies pain. Neuro: Level of Consciousness is awake, alert, obeys commands, Oriented to person, place, time, situation, Contact Center Specialist are equal bilaterally Moves all extremities. Full function Gait is steady, Speech is normal, Facial symmetry appears normal, Pupils are PERRLA. Cardiovascular: Patient's skin is warm and dry. Respiratory: Airway is patent Respiratory effort is even, unlabored, Respiratory pattern is regular, symmetrical. GI: No signs and/or symptoms were reported involving the gastrointestinal system. : No signs and/or symptoms were reported regarding the genitourinary system. EENT: No signs and/or symptoms were reported regarding the EENT system. Derm: Skin is intact, Skin is pink, warm \\T\\ dry. 21:00 Reassessment: Patient appears in no apparent distress at this time. Patient and/or jb4 family updated on plan of care and expected duration. Pain level reassessed. Patient is alert, oriented x 3, equal unlabored respirations, skin warm/dry/pink. 22:00 Reassessment: Patient appears in no apparent distress at this time. Patient and/or jb4 family updated on plan of care and expected duration. Pain level reassessed. Patient is alert, oriented x 3, equal unlabored respirations, skin warm/dry/pink. 22:45 Reassessment: Patient appears in no apparent distress at this time. Patient and/or jb4 family updated on plan of care and expected duration. Pain level reassessed. Patient is alert, oriented x 3, equal unlabored respirations, skin warm/dry/pink. 02/13 00:00 Reassessment: Patient appears in no apparent distress at this time. Patient and/or jb4 family updated on plan of care and expected duration. Pain level reassessed. Patient is alert, oriented x 3, equal unlabored respirations, skin warm/dry/pink. 01:00 Reassessment: Patient appears in no apparent distress at this time. Patient and/or jb4 family updated on plan of care and expected duration. Pain level reassessed. Patient is alert, oriented x 3, equal unlabored respirations, skin warm/dry/pink. 02:00 Reassessment: Patient appears in no apparent distress at this time. Patient and/or jb4 family updated on plan of care and expected duration. Pain level reassessed. Patient is alert, oriented x 3, equal unlabored respirations, skin warm/dry/pink. Vital Signs: 02/12 19:12 BP 130 / 92; Pulse 101; Resp 16; Temp 98.3; Pulse Ox 99% on R/A; Weight 90.72 kg; hb Height 5 ft. 9 in. (175.26 cm); Pain 0/10; 20:09 BP 116 / 66 RA Supine; Pulse 80; Resp 17; oe 20:12 BP 112 / 77 RA Sitting; Pulse 72; Resp 16; oe 20:14 BP 125 / 84 RA Standing; Pulse 93; Resp 20; oe 21:00 BP 125 / 81; Pulse 90; Resp 17; Pulse Ox 100% on R/A; jb4 22:00 BP 123 / 72; Pulse 80; Resp 16; Pulse Ox 100% on R/A; jb4 23:00 BP 122 / 79; Pulse 84; Resp 23 S; Pulse Ox 99% on R/A; jb4 02/13 00:43 BP 102 / 72; Pulse 72; Resp 16; Pulse Ox 97% on R/A; jb4 02:15 BP 124 / 90; Pulse 74; Resp 19; Pulse Ox 97% on R/A; jb4 02/12 19:12 Body Mass Index 29.53 (90.72 kg, 175.26 cm) hb ED Course: 02/12 19:05 Patient arrived in ED. ja2 19:06 Skye Díaz FNP-C [facility]. kb 19:06 Fady Silva MD is Attending Physician. kb 19:12 Triage completed. hb 19:12 Arm band placed on. hb 19:50 Patient has correct armband on for positive identification. Bed in low position. Call 4 light in reach. Side rails up X 1. Client placed on continuous cardiac and pulse oximetry monitoring. NIBP monitoring applied. hall monitor on. 19:56 Initial lab(s) drawn, by ct, sent to lab. Inserted saline lock: 18 gauge in left jb4 antecubital area, using aseptic technique. Blood collected. 20:07 Otto Griffin, RN is Primary Nurse. jb4 20:14 Chest Single View XRAY In Process Unspecified. EDMS 02/13 02:17 No provider procedures requiring assistance completed. IV discontinued, intact, jb4 bleeding controlled, No redness/swelling at site. Pressure dressing applied. Administered Medications: No medications were administered Medication: 02:15 VIS not applicable for this client. jb4 Outcome: 02:06 Discharge ordered by . rn 02:17 Discharged to home ambulatory. jb4 02:17 Condition: stable 02:17 Discharge instructions given to patient, Instructed on discharge instructions, follow up and referral plans. medication usage, Demonstrated understanding of instructions, follow-up care. 02:17 Patient left the ED. jb4 Signatures: Dispatcher [employer] EDAR Skye Díaz, MATERIAL FLOW ANALYST-C MATERIAL FLOW ANALYST-Ckb Fady Silva MD MD rn Baxter, Heather, RN RN hb Bryson, James, RN RN jb4 Ward Garcia Jessica ja2 Corrections: (The following items were deleted from the chart) 02/12 20:23 20:09 BP 116 / 66; Pulse 80bpm; Resp 17bpm; oe oe
[2022-02-13 02:27] VITALS: TEMP 98.3
[2022-02-13 02:48] VITALS: O2SAT 97
[2022-02-13 02:49] VITALS: BP 124/90
--- NOTE | 2022-02-14 15:18 | EKG ---
Test Date: 2022-02-12 Test Time: 19:39:43 Merchandise Planner: CHUCHO MEASUREMENT RESULTS: Intervals: Rate: 89 AL: 146 QRSD: 88 QT: 342 QTc: 416 [place]: P: 58 AL: 146 QRS: 8 T: 27 INTERPRETIVE STATEMENTS: Normal sinus rhythm Normal ECG Compared to ECG 07/25/2020 08:16:38 Sinus tachycardia no longer present Electronically Signed On 02-14-22 15:16:10 MENTAL HYGIENIST by Praneeth Doan
== END 2022-02-13 02:17 | disposition home or self-care (01) ==
LOC: ER 19:01
DX: R00.2 Palpitations (principal); R42 Dizziness and giddiness
CPT/HCPCS: 36415; 71045; 80048; 80076; 81003; 82550; 83735; 84484; 85025; 85610; 85730; 93005